=== PATIENT | male | born 1955 | race Caucasian/White ===

== ENCOUNTER → 2018-03-12 08:14 | Outpatient (POV) | payer OTHER, SELFPAY | PROVIDERS: Visit Provider Dentist | DX: Z00.00 Encounter for general adult medical examination without abnormal findings (principal) ==

== ENCOUNTER → 2018-05-14 09:18 | Outpatient (POV) | payer OTHER, SELFPAY | PROVIDERS: PCP Family Medicine; Visit Provider Dentist | DX: Z00.00 Encounter for general adult medical examination without abnormal findings (principal) ==

== ENCOUNTER → 2018-10-12 12:06 | Outpatient (POV) | payer OTHER, SELFPAY | PROVIDERS: Visit Provider Specialist | DX: R20.0 Anesthesia of skin (principal) | CPT/HCPCS: 95886; 95910 ==

== ENCOUNTER → 2018-11-12 08:08 | Outpatient (POV) | payer OTHER, SELFPAY | PROVIDERS: Visit Provider Dentist | DX: Z00.00 Encounter for general adult medical examination without abnormal findings (principal) ==

== ENCOUNTER → 2019-09-14 15:15 | Outpatient (CLI) | payer OTHER, SELFPAY | PROVIDERS: PCP Family Medicine; Visit Provider Nurse Practitioner | DX: R00.1 Bradycardia, unspecified (principal) | CPT/HCPCS: 93225; 93226 ==

== ENCOUNTER → 2019-10-11 07:43 | Outpatient (CLI) | payer OTHER, SELFPAY ==
--- NOTE | 2019-10-11 07:45 | CA_ITS ---
APPROVED REPORT EXAM: Comprehensive 2D, Doppler, and color-flow Echocardiogram [employer] Supervisor: Christina Briceno RVT Ht: 5 ft 8 in Wt: 187lbs BSA: 1.99 BP: 140/80 mmHg Indications: Bradycardia, abn EKG,Ex Smoker, GERD, HLD 2D Dimensions LVOT 2.29 cm (M/F) 1.5-2.5 M-Mode Dimensions RVDd 2.25 cm (0.9-2.6) LVDd 4.51 cm (3.5-5.7) LVDs 3.30 cm (3.5-5.7) IVSd 0.97 cm (0.6-1.1) PWd 0.93 cm (0.6-1.1) EF (Teich) 52.50% FS 26.80% EDV (Teich) 92.90 mL ESV (Teich) 44.10 mL LV Diastology E/A Ratio 1.44 Mitral Valve MV A Velocity 57.00 (40-130 cm/s) Left Ventricle Left atrium is normal size, left ventricle is normal size, there is no concentric left ventricular hypertrophy, visually estimated ejection fraction 55% with no regional wall motion abnormality, diastolic parameters are within normal range. Right Ventricle Right atrium and right ventricular mildly enlarged with normal contractility. Aortic Valve Aortic valve is minimally thickened and fibrosed, there is no aortic stenosis, there is trace aortic insufficiency. Mitral Valve Mitral valve is grossly normal, there is mild mitral regurgitation. Tricuspid Valve Tricuspid valve is grossly normal, there is mild tricuspid regurgitation. Tricuspid regurgitation jet velocity is inadequate for calculation of the right ventricular systolic pressure. Pulmonic Valve Pulmonic valve is poorly visualized. Great Vessels Aortic root is normal size. Pericardium No significant pericardial effusion noted. Conclusion 1. Normal left ventricular size, preserved left ventricular systolic function visually estimated ejection fraction 55% with no regional wall motion abnormality, diastolic parameters are within normal range. 2. Mildly enlarged right ventricle with normal contractility. 3. Mild mitral and tricuspid regurgitation. 4. Trace aortic insufficiency. 5. No significant pericardial effusion noted. Electronically signed by : Jewel King, 10/12/2019 05:47:53
== END ==
PROVIDERS: PCP Family Medicine; Visit Provider Urology
DX: R00.1 Bradycardia, unspecified (principal); E78.5 Hyperlipidemia, unspecified; Z85.850 Personal history of malignant neoplasm of thyroid; Z87.891 Personal history of nicotine dependence
CPT/HCPCS: 93306

== ENCOUNTER → 2019-10-18 13:53 | Outpatient (CLI) | payer OTHER, SELFPAY | PROVIDERS: PCP Family Medicine; Visit Provider Urology | DX: R00.1 Bradycardia, unspecified (principal); G47.33 Obstructive sleep apnea (adult) (pediatric) | CPT/HCPCS: 95806 ==

== ENCOUNTER → 2020-12-11 17:44 | Outpatient (CLI) | payer OTHER, SELFPAY ==
[2020-12-11 20:37] LABS: Coronavirus 19 IgG Antibody Positive (Negative); Coronavirus 19 IgM Antibody Negative (Negative)
== END ==
PROVIDERS: Visit Provider Surgery
DX: Z01.812 Encounter for preprocedural laboratory examination (principal); Z20.822 Contact with and (suspected) exposure to COVID-19; Z13.810 Encounter for screening for upper gastrointestinal disorder
CPT/HCPCS: 36415; 86328

== ENCOUNTER 2020-12-13 06:33 | Day surgery (SDC) | payer OTHER, SELFPAY ==
[2020-12-11 13:34] VITALS: BMI 29.2
[2020-12-13 06:54] VITALS: BP 155/87; PULSE 54; RESP 18; TEMP 36.5; O2SAT 98
[2020-12-13 07:24] VITALS: O2SAT 97
--- NOTE | 2020-12-13 07:33 | HMH.ANESCL ---
[facility] Anesthesia Checklist - Structural Data Admitted From: Home Planned Operative Procedure/s: egd Consent for Planned Operative Procedure(s) Verified: Yes - Additional verifications Anesthesia Reactions: Yes ( hard to wake ) - Airway Assessment C-Spine Mobility Assessed: Yes TMJ Mobility Assessed: Yes Dentition: Poor Dentition - Neurological Assessment Level of Consciousness: Awake, Alert, Appropriate - Anesthesia Plan Anesthesia Risk discussed: Yes Anesthesia Plan: Verified ASA Class: II Anesthesia Type: MAC [facility] History I have reviewed the patient's past medical history: Yes Medical History: Reports:: Cancer (TONSIL), Gastroesophageal Reflux Disease(GERD), Hyperlipidemia Denies:: Diabetes Mellitus Type 1, Diabetes Mellitus Type 2, Internal Pacemaker, Lung Disease, MRSA, Seizures *Have you ever received a pneumonia vaccine?: Yes *Have you received a flu vaccine this season?: Yes Other Medical History: Reports: Chemotherapy, Radiation Therapy, Thyroid Disease, Other Anesthesia experience/problems:: none Laterality Cases: Right: Myringotomy (Ear Tubes) Other Surgeries: Yes: Colonoscopy, Other (port a cath placement and removal ). No: Pacemaker Amputation: No Fractures: No - *Social History Last grade of school completed: High school graduate Smoking Status: Never smoker Alcohol Intake: never Substance Use Type: denies use *Occupational Status:: retired Housing: house Household Members: spouse *Travel in the last 8 weeks: None Family Hx:: No significant family history
--- NOTE | 2020-12-13 07:38 | P.PCN_ITS ---
- Procedure: Date: 12/13/20 Patient Date of :: 1955 Procedure Performed:: Esophagogastroduodenoscopy with biopsies Indications:: Patient is a 65-year-old male whom I had seen in the past. His primary care provider is Dr. Kevin Acuna. He has a history of radiation therapy for head neck cancer. I had performed colonoscopy on him on 01/13/2018 and he had a diminutive tubular adenoma at the hepatic flexure. I had recommended a follow- up colonoscopy 5 years. I performed upper endoscopy on 04/21/2018. 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 He was started on proton pump inhibitors. I had recommended a follow-up endoscopy in 1 year. Patient does have some dysphagia type symptoms which seems to be more of a cervical dysphagia. He states that his radiation physicians feel that this is not secondary to the radiation. He was wondering if he was due for both upper endoscopy and colonoscopy. Plan for upper endoscopy with biopsies. Dilatation if indicated. I did inform him that given the prior findings on colonoscopy he would not necessarily be due for colonoscopy at this time. If he continues with symptoms of cervical dysphagia he may need to see ENT again. Performing Provider:: Demetrius Crump MD Referring Provider:: Kevin Acuna MD Sedation:: MAC sedation Procedure:: Patient was taken to endoscopy procedure room and positioned in a lateral decubitus position. Adequate intravenous sedation was achieved with anesthesia titration of propofol. Olympus endoscope was inserted via the oropharynx and advanced into the gastric lumen. Gastroesophageal junction was encountered at approximately 40 cm from the incisors. There was no evidence of any Schatzki's ring. Stomach was cannulated and insufflated. There was some moderate nonerosive gastritis. Biopsies were obtained for CLOtest for H. pylori and gastric biopsy was obtained for histopathologic analysis. There is some very mild nonerosive duodenitis in the duodenal bulb. This was biopsied. Several biopsies were obtained at the gastroesophageal junction to assess for Marx's esophagus. Please note that retroflexion within the stomach revealed no evidence of any significant hiatal hernia. A couple of biopsies were obtained of the distal esophagus. In the proximal esophagus less than 15 cm from the incisors there is some minor inflammation and possibly some cricopharyngeal narrowing possibly secondary to previous radiation. Biopsies were obtained. This was not amenable to dilatation using the esophagogastroduodenoscopy scope. Endoscope was withdrawn. Findings:: Minor proximal esophageal inflammation Mild to moderate gastritis Mild nonerosive duodenitis Recommendations:: Continue proton pump inhibitors. Follow-up on biopsy results. If he continues with cervical dysphagia may require repeat ENT consultation. Complications:: None immediate Estimated blood obtained (mL): 2
[2020-12-13 07:40] VITALS: BP 102/59; PULSE 57; RESP 18; TEMP 36.3; O2SAT 93
[2020-12-13 07:50] VITALS: BP 149/85; PULSE 48; RESP 18; O2SAT 95
[2020-12-13 08:00] VITALS: BP 168/78; PULSE 41; RESP 18; O2SAT 98
[2020-12-13 08:10] VITALS: BP 151/88; PULSE 51; RESP 18; TEMP 36.2; O2SAT 97
== END 2020-12-13 08:10 | disposition home or self-care (01) ==
PROVIDERS: PCP Family Medicine; Visit Provider Surgery
PROC: 0DJ08ZZ Inspection of Upper Intestinal Tract, Via Natural or Artificial Opening Endoscopic (ICD-10-PCS; CPT 43235; principal; 2020-12-13 07:30)
DX: Z92.3 Personal history of irradiation (principal); K20.80 Other esophagitis without bleeding; K29.60 Other gastritis without bleeding; K29.80 Duodenitis without bleeding; Z87.19 Personal history of other diseases of the digestive system; Z85.818 Personal history of malignant neoplasm of other sites of lip, oral cavity, and pharynx; R13.19 Other dysphagia; K21.9 Gastro-esophageal reflux disease without esophagitis; E78.5 Hyperlipidemia, unspecified; Z96.22 Myringotomy tube(s) status; G47.33 Obstructive sleep apnea (adult) (pediatric); I35.1 Nonrheumatic aortic (valve) insufficiency
CPT/HCPCS: 43239; 87339

== ENCOUNTER → 2021-05-04 08:26 | Outpatient (CLI) | payer MEDICARE, OTHER, SELFPAY ==
--- NOTE | 2021-05-04 08:29 | CA_ITS ---
APPROVED REPORT EXAM: Comprehensive 2D, Doppler, and color-flow Echocardiogram [employer] Painter: Christina Briceno RVT Ht: 5 ft 9 in Wt: 195lbs BSA: 2.04 BP: 140/86 mmHg Indications: BRADYCARDIA,ABN EKG,EX SMOKER,HLD 2D Dimensions LVOT 2.27 cm (M/F) 1.5-2.5 LA Volume 42.00 mL LA Volume Index 20.58 mL/m2 (M/F) 16-34 M-Mode Dimensions RVDd 3.10 cm (0.9-2.6) LA Diam 4.78 cm (1.9-4.0) LVDd 5.11 cm (3.5-5.7) Ao Diam 2.95 cm (2.0-3.7) LVDs 2.66 cm (3.5-5.7) IVSd 0.76 cm (0.6-1.1) PWd 0.56 cm (0.6-1.1) EF (Teich) 79.10% FS 47.90% EDV (Teich) 124.40 mL TAPSE 2.52 (<1.7) ESV (Teich) 26.00 mL LV Diastology E Decel Time 150.00 (160-240 msec) E/A Ratio 0.6 MED E' 6.00 (< 7 cm/sec) E'/MED E' Ratio 11.58 (>14) LAT E' 11.40 (<10 cm/sec) E/LAT E' Ratio 6.10 (>14) Aortic Valve AI PHT 879.00 ms AO Peak GR. 7.30 mmHg Mitral Valve MV E Max Carlitos. 69.00 (40-130 cm/s) MV A Velocity 113.00 (40-130 cm/s) E/A Ratio 0.61 MV Decel. Time 150.00 (160-240 ms) MV PHT 44.00 ms Pulmonary Valve PV Peak Velocity 86.00 (50-150 cm/s) Tricuspid Valve TR P. Velocity 219.00 cm/s RAP Estimate 10.00 mmHg RVSP 29.10 mmHg Left Ventricle Left atrium is mildly enlarged, left ventricle is normal size, mild concentric left ventricular hypertrophy, visually estimated ejection fraction 55% with no regional wall motion abnormality, grade 1 diastolic dysfunction seen without tissue Doppler evidence of raise left atrial pressure. Right Ventricle Right atrium and right ventricle mildly enlarged with normal contractility. Aortic Valve Aortic valve is minimally thickened and fibrosed, there is no aortic stenosis, there is mild aortic insufficiency. Mitral Valve Mitral valve is grossly normal, there is trace mitral regurgitation. Tricuspid Valve Tricuspid valve grossly normal, there is trace tricuspid regurgitation, tricuspid regurgitation jet velocity is inadequate for calculation of the right ventricular systolic pressure. Pulmonic Valve Pulmonic valve is poorly visualized. Great Vessels Aortic root is normal size. Pericardium No significant pericardial effusion noted. Conclusion 1. Mild biatrial enlargement, normal left ventricular size, mild concentric left ventricular hypertrophy, visually estimated ejection fraction 55% with no regional wall motion abnormality, grade 1 diastolic dysfunction seen without tissue Doppler evidence of raise left atrial pressure. 2. Mildly enlarged right ventricle with normal contractility. 3. Trace mitral and tricuspid regurgitation. 4. Mild aortic insufficiency. 5. No significant pericardial effusion noted. Electronically signed by : Jewel King MD 05/04/2021 10:23:44
== END ==
LOC: RT 08:27
PROVIDERS: PCP Family Medicine; Visit Provider Nurse Practitioner
DX: R00.1 Bradycardia, unspecified (principal); R06.02 Shortness of breath
CPT/HCPCS: 93306

== ENCOUNTER → 2021-05-11 10:41 | Outpatient (CLI) | payer MEDICARE, OTHER, SELFPAY ==
[2021-05-11 13:19] LABS: NT Pro Brain Natriuretic Pep. 100 pg/mL (0-125)
== END ==
PROVIDERS: Visit Provider Internal Medicine Cardiovascular Disease
DX: G47.33 Obstructive sleep apnea (adult) (pediatric) (principal); I50.9 Heart failure, unspecified; R00.1 Bradycardia, unspecified; R06.00 Dyspnea, unspecified; R40.0 Somnolence; R94.31 Abnormal electrocardiogram [ECG] [EKG]
CPT/HCPCS: 36415; 83880

== ENCOUNTER → 2021-05-18 06:46 | Outpatient (CLI) | payer SELFPAY ==
--- NOTE | 2021-05-18 06:48 | CT_ITS ---
PROCEDURE: CT HEART W CALCIUM SCORE CLINICAL HISTORY: dyspnea COMPARISON: No exams were available for comparison TECHNIQUE: Axial images obtained with sagittal and coronal reformats. All CT scans at the facility use one or more dose reduction, viz: automated exposure control, ma/kV adjustment per patient size (including targeted exams where dose is matched to indication, i.e. head), or iterative reconstruction technique. FINDINGS: This report is delayed waiting on completion of the exam by the technologist only completed on 05/25/2021. Coronary artery calcium score is 19. Mild calcific plaque burden with moderate cardiovascular disease risk. Faint calcification is noted in the medial aspect of the left ventricle and may be related to chordae tendinae a calcification. Mild scarring is noted within the right upper lobe with some traction bronchiectasis.. Mild scarring also noted in the lingula. IMPRESSION: Mild calcific plaque burden with moderate cardiovascular disease risk Suspect faint chordae tendinae a calcification in the left ventricle. Scarring in the lingula and right middle lobe with some traction bronchiectasis in the right middle lobe Dictated by: Jose Pierre MD 05/25/2021 11:11 Jose Pierre MD in [facility] 05/25/2021 11:11
== END ==
PROVIDERS: PCP Family Medicine; Visit Provider Internal Medicine Cardiovascular Disease
DX: Z13.6 Encounter for screening for cardiovascular disorders (principal)
CPT/HCPCS: 75571

== ENCOUNTER → 2021-05-18 06:49 | Outpatient (CLI) | payer MEDICARE, OTHER, SELFPAY ==
--- NOTE | 2021-05-18 06:50 | NM_ITS ---
APPROVED REPORT Exam: Nuclear Stress Test Indication: FM HX, SOB, FATIGUE Patient Location: Outpatient Stress Tech: Christelle Santo MA Tech:Valeri Frances, ARRT, RT (R)(N) Ht: 5 ft 9 in Wt: 199 lbs HR: 40 bpm BP: 131/86 mmHg BSA: 2.06 m2 BMI: 29.3 History: FM HX, SOB, FATIGUE Procedure: Patient exercised on Tone protocol 9:00 minutes and sec, resting heart rate 40 bpm, resting blood pressure 131/86 mmHg, with exercise maximum heart rate achived was 139 bpm which is 90 % of the maximum predicted heart rate and blood pressure was 190/92 mmHg. Patient denied any complaint of chest pain. Patient has good exercise capacity, achieved 10.1 METs of workload on treadmill, the blood pressure response to exercise was Adequate. Electrocardiogram Resting electrocardiogram showed sinus rhythm, with exercise there is less than 1.[address] segment depression noted from the baseline EKG. The EKG portion of the exercise Myoview is negative for ischemia. Cardiac Stress and Resting SPECT Images: Cardiac Stress and Resting SPECT images were obtained using technetium 99m Myoview 32.0 mCi stress and 10.64 mCi at rest. Gated SPECT for analysis of segmental wall motion and calculation of the ejection fraction also done. Cardiac stress and resting SPECT images show uniform myocardial activity without segmental perfusion abnormality, computer derived ejection fraction is 58% with no regional wall motion abnormality, right ventricle is normal size and contractility. Conclusion: 1. The EKG portion of the exercise Myoview is negative for ischemia, patient has good exercise capacity achieved 10.1 METs of workload on treadmill, the blood pressure response to exercise was adequate, there was no exercise-induced chest discomfort. 2. No scintigraphic evidence of reversible ischemia seen, computer derived ejection fraction is 58% with no regional wall motion abnormality, right ventricle is normal size and contractility. 3. Normal exercise Myoview study. Electronically signed by : Jewel King MD 05/18/2021 13:06:54
--- NOTE | 2021-05-18 06:50 | CA_ITS ---
APPROVED REPORT Exam: Exercise Treadmill Technologist: Christelle Santo Ht: 5 ft 9 in Wt: 199 lbs BSA: 2.06 m2 HR: 40 bpm BP: 131/86 mmHg Indications: Shortness of Air Medical History Medications: Levothyroxine,,,,, Fish Oil,,,,, Atorvastatin,,,,, Magnesium,,,,, Esomeprazole,,,,, CetIRIZINE,,,,, Coenzyme Q10,,,,, Stress Test Details Test: Faiza HR Resting HR: 53 bpm Max Heart Rate (APMHR): 155.062138 bpm Max HR Achieved: 139 bpm Target HR (85% APMHR): 131.805375 bpm % of APMHR: 89.68 Recovery HR: 70 bpm BP Resting BP: 131.0/86.0 mmHg Max BP: 190.0/92.0 mmHg Recovery BP: 154.0/91.0 mmHg ECG Resting ECG: Sinus bradycardia with inferior non-specific ST T Changes. Clinical Reason for Termination: Dyspnea Exercise duration: 09:00 min Highest Stage Achieved: Exercise capacity: 10.1 METs Stress ECG Conclusion Negative stress test. Patient exercised on a faiza protocol for 9 minutes to peak heart rate of 139 bpm (target heart rate 132 bpm) without chest pain. Occasional PAC's/atrial couplets noted during stress. One PVC noted in recovery. Less than 1.[address] segment changes noted during stress. Total METS acheived was 10.1 with peak blood pressure 190/92 mmHg. See nuclear report for further information. Electronically signed by : Jewel King MD 05/18/2021 13:03:59
== END ==
PROVIDERS: PCP Family Medicine; Visit Provider Internal Medicine Cardiovascular Disease
DX: G47.33 Obstructive sleep apnea (adult) (pediatric) (principal); R00.1 Bradycardia, unspecified; R06.00 Dyspnea, unspecified; R40.0 Somnolence; R94.31 Abnormal electrocardiogram [ECG] [EKG]
CPT/HCPCS: 78452; 93017; A9502

== ENCOUNTER → 2021-06-22 09:24 | Outpatient (CLI) | payer MEDICARE, OTHER, SELFPAY ==
[2021-06-22 11:02] LABS: Alanine Aminotransferase 32 U/L (12-78); Albumin Level 4.4 g/dl (3.5-5.0); Alkaline Phosphatase 88 U/L (38-126); Aspartate Amino Transferase 44 U/L (17-59); Bilirubin,Direct 0.4 mg/dl (0.0-0.4); Bilirubin,Indirect 0.3 mg/dL (0.0-0.9); Bilirubin,Total 0.7 mg/dl (0.2-1.3); Bilirubin,Unconjugated 0.3 mg/dL (0.0-1.1); Chol/HDL Ratio 2.5 (1-3.5); Cholesterol 113 mg/dl (140-200); HDL Cholesterol 46 mg/dl (40-60); Total Protein,Serum 6.8 g/dl (6.3-8.2); Triglycerides 70 mg/dl (30-150); VLDL Cholesterol 14 mg/dL (0-40)
[2021-06-22 11:13] LABS: Direct LDL Cholesterol 46.66 mg/dL (100-129)
[2021-06-22 12:40] LABS: Chloride 101 mmol/L (98-107); Potassium 4.9 mmoL/L (3.5-5.1); Sodium 140 mmol/L (136-145)
[2021-06-22 12:43] LABS: Blood Urea Nitrogen 11 mg/dl (9-20); Estimated Glomerular Filt Rate 97 ml/min (>60); GFR (African American) 117 ML/MIN (>60)
[2021-06-22 12:44] LABS: Anion Gap 12.9 mEq/L (5-15); Calcium 9.6 mg/dl (8.4-10.2); Carbon Dioxide 31 mmol/L (22.0-30.0); Glucose 90 mg/dl (74-100)
== END ==
PROVIDERS: Visit Provider Internal Medicine Cardiovascular Disease
DX: E78.5 Hyperlipidemia, unspecified (principal); I10 Essential (primary) hypertension; R06.00 Dyspnea, unspecified; I35.1 Nonrheumatic aortic (valve) insufficiency; R94.31 Abnormal electrocardiogram [ECG] [EKG]
CPT/HCPCS: 36415; 80048; 80061; 80076

== ENCOUNTER 2022-03-16 16:16 | Emergency (ER) | payer OTHER, SELFPAY ==
[2022-03-16 16:17] VITALS: BP 138/62; PULSE 53; RESP 16; TEMP 37; O2SAT 98; BMI 26.6
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
[2022-03-16 17:00] VITALS: BP 116/72; PULSE 56; RESP 14; O2SAT 96
[2022-03-16 17:21] VITALS: BP 116/74; PULSE 78; RESP 16; TEMP 36.6; O2SAT 98
== END 2022-03-16 17:24 | disposition home or self-care (01) ==
PROVIDERS: Emergency Provider Emergency Medicine; PCP Family Medicine
DX: S01.01XA Laceration without foreign body of scalp, initial encounter (principal); S70.212A Abrasion, left hip, initial encounter; V84.5XXA Driver of special agricultural vehicle injured in nontraffic accident, initial encounter
CPT/HCPCS: 12001; 90471; 90715; 99283

== ENCOUNTER 2022-03-16 19:34 | Emergency (ER) | payer OTHER, SELFPAY ==
[2022-03-16 19:35] VITALS: BP 148/81; PULSE 58; RESP 16; TEMP 36.9; O2SAT 95; BMI 26.6
[2022-03-16 20:01] VITALS: BP 132/82; PULSE 61; O2SAT 96
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
--- NOTE | 2022-03-16 20:06 | ECG_ITS ---
APPROVED REPORT Exam: Resting ECG HR:57 bpm ECG Measurements Heart Rate 57 AXES TN 170 P 50 QRSd 92 QRS 5 QT 402 T 36 QTc 397 Conclusion SINUS BRADYCARDIA BORDERLINE ECG UNCONFIRMED REPORT Electronically signed by : Lucian Bell MD 03/17/2022 16:24:38
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
[2022-03-16 20:16] LABS: Microscopic, Urine URINE MICROSCOPIC (MICROSCOPIC)
[2022-03-16 20:18] LABS: Coronavirus 19, PCR Not Detected (NotDetected); Influenza A, PCR Not Detected (NotDetected); Influenza B, PCR Not Detected (NotDetected)
[2022-03-16 20:35] LABS: Appearance,Urine CLEAR (Clear); Bilirubin,Urine Negative (Negative); Blood, Urine Negative (Negative); Color,Urine YELLOW (Yellow); Glucose,Urine (UA) Negative (Negative); Ketones,Urine Negative (Negative); Leukocyte Esterase,Urine Negative (Negative); Nitrate,Urine Negative (Negative); Protein,Urine Negative (Negative); Specific Gravity, Urine 1.015 (1.005-1.030); Urobilinogen,Urine 0.2 EU/dl (0.2)
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
[2022-03-16 20:46] LABS: Amorphous Sediment,Urine Trace /lpf; WBC,Urine Occasional #/hpf (0-3)
[2022-03-16 20:52] LABS: Basophils # 0.1 K/mm3 (0-0.2); Basophils % 0.5 % (0.1-2.0); Eosinophils # 0.2 K/mm3 (0.0-0.4); Eosinophils % 1.2 % (0.1-12.0); Hematocrit 41.6 % (42.0-52.0); Hemoglobin 13.5 g/dL (14.1-18.0); Lymphocytes # 1.4 K/mm3 (0.7-4.5); Lymphocytes % 10.2 % (10-50); Mean Corpuscular HGB Conc 32.3 g/dL (31.8-35.4); Mean Corpuscular Hemoglobin 30.8 pg (27.0-31.2); Mean Corpuscular Volume 95.2 fl (80-94); Mean Platelet Volume 7.8 fl (7.4-10.4); Monocytes # 0.4 K/mm3 (0.1-1.0); Neutrophils # 11.9 K/mm3 (1.8-7.8); Neutrophils % 85.1 % (37.0-80.0); Platelet Count 246 K/mm3 (142-424); Red Blood Count 4.37 M/mm3 (4.60-6.20); White Blood Count 13.9 K/mm3 (4.8-10.8)
[2022-03-16 20:55] LABS: Alanine Aminotransferase 31 U/L (12-78); Albumin Level 4.3 g/dl (3.5-5.0); Albumin/Globulin Ratio 1.7 (1.1-1.8); Alkaline Phosphatase 82 U/L (38-126); Anion Gap 8.9 mEq/L (5-15); Aspartate Amino Transferase 42 U/L (17-59); Bilirubin,Total 0.3 mg/dl (0.2-1.3); Blood Urea Nitrogen 8 mg/dl (9-20); Calcium 9.1 mg/dl (8.4-10.2); Carbon Dioxide 32 mmol/L (22.0-30.0); Chloride 101 mmol/L (98-107); Creatine Kinase 95 U/L (55-170); Creatinine Clearance Estimated 84 mL/min (50-200); Estimated Glomerular Filt Rate 75 ml/min (>60); GFR (African American) 90 ML/MIN (>60); Globulin 2.5 g/dL (1.3-3.2); Glucose 143 mg/dl (74-100); MANUAL DIFFERENTIAL MANUAL DIFFERENTIAL (MANUAL DIFF); Potassium 3.9 mmoL/L (3.5-5.1); Sodium 138 mmol/L (136-145); Total Protein,Serum 6.8 g/dl (6.3-8.2)
[2022-03-16 21:19] LABS: Lymphocytes % 11 % (10-50); Monocytes % 6 % (2-9); Neutrophils % 83 % (42-76); Platelet Estimate Normal; Total Cells Counted 100
[2022-03-16 23:00] VITALS: BP 133/78; PULSE 58; O2SAT 97
--- NOTE | 2022-03-16 23:38 | HMH.EDTRAUMA ---
ED Disposition Clinical Impression: Flank pain, acute Sacral fracture, closed Qualifiers: Encounter type: initial encounter Zone of sacrum fracture: unspecified portion of sacrum Qualified Code(s): S32.10XA - Unspecified fracture of sacrum, initial encounter for closed fracture Disposition: Home, Self-Care Condition on Discharge: Good Instructions: DI for Low Back Pain Additional Instructions: use meds and see pcp for follow up Prescriptions: Tizanidine HCl [Zanaflex 4mg tab] 4 mg PO TID PRN #21 tab PRN Reason: Muscle Spasm Transmission Status: Pending to [facility]/pharmacy #[id number] Referrals: Provider,Referral, [Primary Care Provider] - - Critical Care Critical Care Time: No Attestation: On 03/16/22, the high probability of a clinically significant, sudden or life threatening deterioration of the following system(s) required my full and direct attention, intervention and personal management. The time I documented below is in addition to time spent performing reported procedures but includes the following listed in this critical care notation. Medical Decision Making - Medical Records Medical records reviewed: Yes: I reviewed the patient's medical records. - Papito Inquiry Pt receiving controlled substance: No Vital Signs: 03/16/22 19:35 03/16/22 20:01 03/16/22 23:00 Temperature 98.4 F Temperature Source Oral Pulse Rate 61 58 L Pulse Rate [Left Radial] 58 L Respiratory Rate 16 Blood Pressure 132/82 133/78 Blood Pressure [Right Arm] 148/81 H Blood Pressure Mean 108 Blood Pressure Mean [Right Arm] 103 Blood Pressure Source [Right Arm] Automatic Cuff Blood Pressure Position [Right Arm] Sitting 02 Sat by Pulse Oximetry 95 96 97 Oxygen Delivery Method Room Air Room Air Room Air - Lab Data Lab results reviewed: Yes: I reviewed the patient's lab results. Lab Results 03/16/22 20:10: Urine Color Yellow, Urine Appearance Clear, Urine pH 7.0, Ur Specific [place] 1.015, Urine Protein Negative, Urine Glucose (UA) Negative, Urine Ketones Negative, Urine Blood Negative, Urine Nitrate Negative, Urine Bilirubin Negative, Urine Urobilinogen 0.2, Ur Leukocyte Esterase Negative, Urine WBC Occasional, Amorphous Sediment Trace 03/16/22 20:10: SARS-CoV-2 (PCR) Not detected, Influenza A Untype (PCR) Not detected, Influenza Type B (PCR) Not detected 03/16/22 20:22: WBC 13.9 H, RBC 4.37 L, Hgb 13.5 L, Hct 41.6 L, MCV 95.2 H, MCH 30.8, MCHC 32.3, RDW 14.0, Plt Count 246, MPV 7.8, Neut % (Auto) 85.1 H, Lymph % (Auto) 10.2, Ripley % (Auto) 3.0, Eos % (Auto) 1.2, Baso % (Auto) 0.5, Neut # (Auto) 11.9 H, Lymph # (Auto) 1.4, [place] # (Auto) 0.4, Eos # (Auto) 0.2, Baso # (Auto) 0.1, Total Counted 100, Neutrophils % (Manual) 83 H, Lymphocytes % (Manual) 11, Monocytes % (Manual) 6, Platelet Estimate Normal 03/16/22 20:22: Sodium 138, Potassium 3.9, Chloride 101, Carbon Dioxide 32 H, Anion Gap 8.9, BUN 8 L, Creatinine 1.00, Estimated Creat Clear 84, Estimated GFR 75, Est GFR ( Amer) 90, Glucose 143 H, Calcium 9.1, Total Bilirubin 0.3, AST 42, ALT 31, Alkaline Phosphatase 82, Total Creatine Kinase 95, Total Protein 6.8, Albumin 4.3, Globulin 2.5, Albumin/Globulin Ratio 1.7 Result diagrams: 03/16/22 20:22 03/16/22 20:22 Orders (Tests/Meds): ED MEDICATIONS Discontinued Medications Generic Name Dose Route Start Last Admin Trade Name Edward PRN Reason Stop Dose Admin Iopamidol 75 ml 03/16/22 21:18 03/16/22 21:19 Iopamidol-370 (76%);100ml Bottle IV 03/16/22 21:19 75 ml ONCE ONE Administration Sodium Chloride 10 ml 03/16/22 21:18 03/16/22 21:19 Sodium Chloride 0.9% 10ml Syr (Rad Only) IV 03/16/22 21:19 10 ml ONCE ONE Administration ORDERS Category Date Time Status Lactic Acid Stat Lab 03/16/22 20:04 Ordered - Radiology Data #1 Image(s): Chest, Pelvis Image Reviewed: Yes I have reviewed radiologist's interpretation Preliminary Findings: No Fracture Seen - CT
[2022-03-16 23:51] VITALS: BP 135/78; PULSE 60; RESP 16; TEMP 36.9; O2SAT 97
== END 2022-03-17 00:01 | disposition home or self-care (01) ==
PROVIDERS: Emergency Provider Emergency Medicine
DX: R10.9 Unspecified abdominal pain (principal); S32.10XA Unspecified fracture of sacrum, initial encounter for closed fracture; V84.5XXD Driver of special agricultural vehicle injured in nontraffic accident, subsequent encounter
CPT/HCPCS: 71045; 71260; 72128; 72131; 72170; 74177; 80053; 81001; 82550; 85007; 85025; 93005; 96374; 99285; C9803; Q9967; U0003; U0005

== ENCOUNTER → 2022-06-08 08:15 | Outpatient (CLI) | payer MEDICARE, OTHER, SELFPAY ==
[2022-06-07 19:46] LABS: Alanine Aminotransferase 28 U/L (12-78); Albumin Level 4.2 g/dl (3.5-5.0); Albumin/Globulin Ratio 1.6 (1.1-1.8); Alkaline Phosphatase 111 U/L (38-126); Anion Gap 16.2 mEq/L (5-15); Aspartate Amino Transferase 39 U/L (17-59); Bilirubin,Total 0.4 mg/dl (0.2-1.3); Blood Urea Nitrogen 12 mg/dl (9-20); Calcium 9.1 mg/dl (8.4-10.2); Carbon Dioxide 30 mmol/L (22.0-30.0); Chloride 101 mmol/L (98-107); Estimated Glomerular Filt Rate 84 ml/min (>60); GFR (African American) 102 ML/MIN (>60); Globulin 2.6 g/dL (1.3-3.2); Glucose 99 mg/dl (74-100); Potassium 4.2 mmoL/L (3.5-5.1); Sodium 143 mmol/L (136-145); Total Protein,Serum 6.8 g/dl (6.3-8.2)
[2022-06-07 20:16] LABS: Thyroid Stimulating Hormone 2.94 uIU/mL (0.465-4.68)
== END ==
PROVIDERS: PCP Family Medicine; Visit Provider Family Medicine
DX: I10 Essential (primary) hypertension (principal); Z79.899 Other long term (current) drug therapy
CPT/HCPCS: 80053; 84443

== ENCOUNTER → 2022-09-09 08:55 | Outpatient (CLI) | payer OTHER, SELFPAY ==
[2022-09-09 18:33] LABS: Alanine Aminotransferase 33 U/L (12-78); Albumin Level 4.2 g/dl (3.5-5.0); Albumin/Globulin Ratio 1.6 (1.1-1.8); Alkaline Phosphatase 90 U/L (38-126); Anion Gap 11.5 mEq/L (5-15); Aspartate Amino Transferase 40 U/L (17-59); Bilirubin,Total 0.5 mg/dl (0.2-1.3); Blood Urea Nitrogen 16 mg/dl (9-20); Carbon Dioxide 31 mmol/L (22.0-30.0); Chloride 102 mmol/L (98-107); Chol/HDL Ratio 2.8 (1-3.5); Cholesterol 132 mg/dl (140-200); Estimated Glomerular Filt Rate 75 ml/min (>60); GFR (African American) 90 ML/MIN (>60); Globulin 2.6 g/dL (1.3-3.2); Glucose 93 mg/dl (74-100); HDL Cholesterol 47 mg/dl (40-60); Potassium 4.5 mmoL/L (3.5-5.1); Sodium 140 mmol/L (136-145); Total Protein,Serum 6.8 g/dl (6.3-8.2); Triglycerides 58 mg/dl (30-150); VLDL Cholesterol 12 mg/dL (0-40)
[2022-09-09 18:43] LABS: Basophils # 0.1 K/mm3 (0-0.2); Basophils % 0.8 % (0.1-2.0); Eosinophils # 0.3 K/mm3 (0.0-0.4); Eosinophils % 5.3 % (0.1-12.0); Hematocrit 44.3 % (42.0-52.0); Hemoglobin 14.2 g/dL (14.1-18.0); Lymphocytes # 1.6 K/mm3 (0.7-4.5); Lymphocytes % 25.8 % (10-50); Mean Corpuscular Volume 93.5 fl (80-94); Mean Platelet Volume 9.1 fl (7.4-10.4); Monocytes # 0.2 K/mm3 (0.1-1.0); Monocytes % 3.6 % (1.7-9.3); Neutrophils # 4.1 K/mm3 (1.8-7.8); Neutrophils % 64.5 % (37.0-80.0); Platelet Count 292 K/mm3 (142-424); Red Blood Count 4.73 M/mm3 (4.60-6.20); Red Cell Distribution Width 13.5 % (11.5-17.5); White Blood Count 6.3 K/mm3 (4.8-10.8)
[2022-09-09 18:44] LABS: Creatinine,Urine Random 75 mg/dL (Not Estab.); Direct LDL Cholesterol 64.82 mg/dL (100-129)
[2022-09-09 18:50] LABS: Free T4 (Free Thyroxine) 0.86 ng/dl (0.78-2.19); Microalbumin < 6.000 mg/L (0-16.7)
[2022-09-09 19:05] LABS: Prostate Specific Ag Screen 0.4 ng/ml (0.0-4.0); Thyroid Stimulating Hormone 2.38 uIU/mL (0.465-4.68)
[2022-09-09 19:22] LABS: Vitamin B12 654 pg/mL (239-931)
== END ==
PROVIDERS: PCP Nurse Practitioner; Visit Provider Nurse Practitioner
DX: E03.9 Hypothyroidism, unspecified (principal); E78.5 Hyperlipidemia, unspecified; I10 Essential (primary) hypertension; Z12.5 Encounter for screening for malignant neoplasm of prostate
CPT/HCPCS: 80053; 80061; 82043; 82570; 82607; 84439; 84443; 85025; G0103

== ENCOUNTER → 2023-03-10 23:06 | Outpatient (CLI) | payer OTHER, SELFPAY ==
[2023-03-10 19:38] LABS: Alanine Aminotransferase 32 U/L (12-78); Albumin Level 4.5 g/dl (3.5-5.0); Albumin/Globulin Ratio 1.8 (1.1-1.8); Alkaline Phosphatase 89 U/L (38-126); Anion Gap 13.2 mEq/L (5-15); Aspartate Amino Transferase 42 U/L (17-59); Bilirubin,Total 0.5 mg/dl (0.2-1.3); Blood Urea Nitrogen 15 mg/dl (9-20); Calcium 9.3 mg/dl (8.4-10.2); Carbon Dioxide 32 mmol/L (22.0-30.0); Chloride 100 mmol/L (98-107); Chol/HDL Ratio 2.7 (1-3.5); Cholesterol 134 mg/dl (140-200); Estimated Glomerular Filt Rate 84 ml/min (>60); GFR (African American) 102 ML/MIN (>60); Globulin 2.5 g/dL (1.3-3.2); Glucose 90 mg/dl (74-100); HDL Cholesterol 50 mg/dl (40-60); Potassium 4.2 mmoL/L (3.5-5.1); Sodium 141 mmol/L (136-145); Triglycerides 93 mg/dl (30-150); VLDL Cholesterol 19 mg/dL (0-40)
[2023-03-10 19:49] LABS: Direct LDL Cholesterol 63.16 mg/dL (100-129); Free T4 (Free Thyroxine) 0.97 ng/dl (0.78-2.19)
[2023-03-10 20:03] LABS: Thyroid Stimulating Hormone 1.25 uIU/mL (0.465-4.68)
== END ==
LOC: LAB.DROPOF 23:07
PROVIDERS: PCP Nurse Practitioner; Visit Provider Nurse Practitioner
DX: E03.9 Hypothyroidism, unspecified (principal); E78.5 Hyperlipidemia, unspecified; I10 Essential (primary) hypertension
CPT/HCPCS: 80053; 80061; 84439; 84443

== ENCOUNTER 2023-06-10 06:28 | Day surgery (SDC) | payer OTHER, SELFPAY ==
[2023-06-06 12:40] VITALS: BMI 25.8
[2023-06-10 07:12] VITALS: BP 134/84; PULSE 52; RESP 18; TEMP 36.7; O2SAT 98
[2023-06-10 07:42] VITALS: BP 147/70; PULSE 40; RESP 17; O2SAT 96
[2023-06-10 07:47] VITALS: BP 162/77; PULSE 45; RESP 16; O2SAT 100
[2023-06-10 07:52] VITALS: BP 153/73; PULSE 46; RESP 17; O2SAT 100
[2023-06-10 07:56] VITALS: BP 140/66; PULSE 39; RESP 17; O2SAT 100
[2023-06-10 08:00] VITALS: BP 147/80; PULSE 43; RESP 18; TEMP 36.1; O2SAT 98
== END 2023-06-10 08:14 | disposition home or self-care (01) ==
PROVIDERS: PCP Nurse Practitioner; Visit Provider Ophthalmology
PROC: (CPT 66984; principal; 2023-06-10 07:30)
DX: H25.811 Combined forms of age-related cataract, right eye (principal)
CPT/HCPCS: 66984; V2632

== ENCOUNTER 2023-06-24 06:24 | Day surgery (SDC) | payer OTHER, SELFPAY ==
[2023-06-23 07:15] VITALS: BMI 27.6
[2023-06-24] VITALS (7 sets, daily range): BP systolic 136–178; BP diastolic 72–99; PULSE 43–53; RESP 16–18; TEMP 36.3; O2SAT 95–99
== END 2023-06-24 08:16 | disposition home or self-care (01) ==
PROVIDERS: PCP Nurse Practitioner; Visit Provider Ophthalmology
PROC: (CPT 66984; principal; 2023-06-24 07:30)
DX: H25.812 Combined forms of age-related cataract, left eye (principal)
CPT/HCPCS: 66984; V2632

== ENCOUNTER → 2023-08-22 07:26 | Outpatient (CLI) | payer OTHER, SELFPAY ==
--- NOTE | 2023-08-22 | CA_ITS ---
APPROVED REPORT Exam: Exercise Treadmill Technologist: Johanna Brown, Ht: 5 ft 9 in Wt: 193 lbs BSA: 2.03 m2 HR: 55 bpm BP: 151/97 mmHg Rhythm: SINUS EV, T WAVE ABNS IN LEADS III, aVF Medical History Medical History: HTN, Hyperlipidemia, Smoking Medications: Levothyroxine,,,,, Aspirin,,,,, Atorvastatin,,,,, Flonase,,,,, Montelukast,,,,, Vit B,,,,, Sertraline,,,,, CetIRIZINE,,,,, Garlic,,,,, Coenzyme Q10,,,,, Losartan-Hydrochlorothiazide,,,,, Esomeprazle MAGNESIUM,,,,, Allergies: No known drug allergies Cardiac Risk Factors: HTN, Hyperlipidemia, FHX of CAD, Smoking Stress Test Details Test: Tone HR Resting HR: 50 bpm Max Heart Rate (APMHR): 153 bpm Max HR Achieved: 141 bpm Target HR (85% APMHR): 130 bpm % of APMHR: 92 Recovery HR: 85 bpm HR response to stress: Normal HR response to stress BP Resting BP: 151.0/97 mmHg Max BP: 192/90 mmHg Recovery BP: 155.0/89.0 mmHg BP response to stress: Normal blood pressure response to stress. ECG Resting ECG: Sinus bradycardia, T wave changes in inferior leads Stress EC.[address] depression Arrhythmia: PVCs Recovery ECG: Return to baseline within 3 minutes of recovery Recovery Arrhythmia: PACs Clinical Exercise duration: 07:31 min Highest Stage Achieved: Exercise capacity: 10.1 METs Overall Exercise Capacity for Age: Average Stress ECG Conclusion The patient was able to exercise for a total of 7 minutes, 41 seconds. He achieved a total of 10.1 METS. He has average exercise capacity compared to age and sex matched peers. He has normal HR and BP response to exercise. MAX HR: 141 % OF PM: 92% MAX BP: 192/90 METS: 10.1 TEST STOPPED DUE TO: SOA NO CP Ectopy: PACs Conclusion: Average exercise capacity Normal ST response to exercise. No evidence of ischemia at peak stress. Myoview images are reported separately. Test Summary REST . . . . . . . Standing REST . . . . . . . Sitting REST 06:33 0.0 0.0 50 . 151/ 97 . . Stage 1 01:00 10.0 1.7 91 . . . . Stage 1 02:00 10.0 1.7 104 . . . . Stage 1 03:00 10.0 1.7 115 . 190/ 96 . . Stage 2 01:00 12.0 2.5 123 . . . . Stage 2 02:00 12.0 2.5 126 . . . . Stage 2 03:00 12.0 2.5 128 . 192/ 90 . . Stage 3 01:00 14.0 3.4 136 . . . . Stage 3 01:31 14.0 3.4 140 . . . Stop exercise at 07:31 RECOVERY 01:00 0.0 0.0 123 . . . . RECOVERY 02:00 0.0 0.0 102 . . . . RECOVERY 03:00 0.0 0.0 88 . 133/ 97 . . RECOVERY 04:00 0.0 0.0 80 . 133/ 97 . . RECOVERY 05:00 0.0 0.0 79 . 175/ 98 . . RECOVERY 05:44 0.0 0.0 77 . 155/ 89 . . Electronically signed by : Carmita Kulkarni MD 08/26/2023 23:46:41
--- NOTE | 2023-08-22 07:36 | NM_ITS ---
APPROVED REPORT Exam: Nuclear Stress Test Indication: HTN, HYPERLIPIDEMIA, FM HX, SOB, SYNCOPE, ABN EKG Patient Location: Outpatient Stress Tech: Johanna Brown [place] Tech:Rochelle AcharyaEVELYNE RT (R)(N)(M) Ht: 5 ft 9 in Wt: 184 lbs HR: 55 bpm BP: 151/97 mmHg BSA: 1.99 m2 Rhythm: NSR TID: 1.09 BMI: 27.1 History: HTN, HYPERLIPIDEMIA, FM HX, SOB, SYNCOPE, ABN EKG Procedure: Patient exercised on Tone protocol 7:30 minutes and sec, resting heart rate 55 bpm, resting blood pressure 151/97 mmHg, with exercise maximum heart rate achived was 141 bpm which is 92 % of the maximum predicted heart rate and blood pressure was 192/90 mmHg. Test was stopped due to FATIGUE. Patient denied any complaint of chest pain. Patient has Average exercise capacity, achieved 10.1 METs of workload on treadmill, the blood pressure response to exercise was Normal. Cardiac Stress and Resting SPECT Images: Cardiac Stress and Resting SPECT images were obtained using technetium 99m Myoview 31.9 mCi stress and 10.22 mCi at rest. Resting and stress imaging in supine and prone positions demonstrate no definite evidence of fixed or reversible perfusion defects. Gated imaging demonstrates normal global and regional LV systolic function. LVEF is calculated at 59%. Conclusion: No definite evidence of fixed or reversible perfusion defects. Gated imaging demonstrates normal global and regional LV systolic function. LVEF is calculated at 59%. Electronically signed by : Carmita Kulkarni MD 08/26/2023 23:48:31
--- NOTE | 2023-08-22 09:27 | CA_ITS ---
APPROVED REPORT EXAM: Comprehensive 2D, Doppler, and color-flow Echocardiogram Holder Pile Driving: Christina Briceno RVT Ht: 5 ft 9 in Wt: 193lbs BSA: 2.03 BP: 131/77 mmHg Indications: ABN EKG,HTN,HLD,EX SMOKER 2D Dimensions LA Volume 51.00 mL LA Volume Index 25.00 mL/m2 (M/F) 16-34 M-Mode Dimensions RVDd 2.69 cm (0.9-2.6) LA Diam 4.31 cm (1.9-4.0) LVDd 4.42 cm (3.5-5.7) LVDs 2.95 cm (3.5-5.7) IVSd 0.83 cm (0.6-1.1) PWd 0.61 cm (0.6-1.1) EF (Teich) 62.10% FS 33.30% EDV (Teich) 88.60 mL TAPSE 1.98 (<1.7) ESV (Teich) 33.60 mL LV Diastology E Decel Time 307 (160-240 msec) E/A Ratio 1.0 MED A' 9.10 cm/s LAT A' 8.50 cm/s Aortic Valve BENJIE Index 1.31 cm2/m2 AoV Peak Carlitos. 157.0 (50-130 cm/s) AI PHT 323.00 ms AO Peak GR. 9.90 mmHg AO Mean GR. 5.00 (<5 mmHg) AO VTI 37.7 (18-25 cm) BENJIE (VTI) 2.73 (2.5-4.5 cm2) Mitral Valve MV E Max Carlitos. 67.0 (40-130 cm/s) MV A Velocity 70.0 (40-130 cm/s) E/A Ratio 0.96 MV PHT 90.0 ms Pulmonary Valve PV Peak Velocity 78.0 (50-150 cm/s) Tricuspid Valve TR P. Velocity 238.00 cm/s RAP Estimate 10.00 mmHg RVSP 32.60 mmHg Left Ventricle The left ventricle is normal size. The left ventricular systolic function is normal. The left ventricular ejection fraction is within the normal range. Proximal septal thickening is noted. There is normal LV segmental wall motion. The left ventricular diastolic function is normal. LVEF is 60%. Right Ventricle The right ventricle is normal size. The right ventricular systolic function is normal. Atria The left atrium size is normal. The right atrium size is normal. There is no Doppler evidence of interatrial shunt. Aortic Valve The aortic valve is mildly thickened. There is no aortic valvular stenosis. Mild aortic regurgitation. Mitral Valve The mitral valve is normal in structure. No evidence of mitral valve stenosis. Mild mitral regurgitation. Tricuspid Valve The tricuspid valve leaflets are thin and pliable. Trace tricuspid regurgitation. RVSP is 20-25 mmHg. Pulmonic Valve The pulmonary valve is normal in structure. Trace pulmonic regurgitation. Great Vessels The aortic root is normal in size. The ascending aorta is normal in size. IVC is normal in size and collapses >50% with inspiration. Pericardium There is no pericardial effusion. Other Information Study Quality: Adequate Conclusion Normal biventricular systolic function. Mild AI. Mild MR. Electronically signed by : Carmita Kulkarni MD 08/26/2023 19:12:51
== END ==
PROVIDERS: PCP Family Medicine; Visit Provider Nurse Practitioner
DX: I51.89 Other ill-defined heart diseases (principal); R94.31 Abnormal electrocardiogram [ECG] [EKG]
CPT/HCPCS: 78452; 93017; 93018; 93306; A9502

== ENCOUNTER 2023-09-08 23:13 | Outpatient (CLI) | payer OTHER, SELFPAY ==
[2023-09-08 18:37] LABS: Basophils % 0.5 % (0.1-2.0); Eosinophils # 0.3 K/mm3 (0.0-0.4); Eosinophils % 4.6 % (0.1-12.0); Hematocrit 41.6 % (42.0-52.0); Hemoglobin 13.8 g/dL (14.1-18.0); Lymphocytes # 1.6 K/mm3 (0.7-4.5); Lymphocytes % 25.2 % (10-50); Mean Corpuscular HGB Conc 33.2 g/dL (31.8-35.4); Mean Corpuscular Hemoglobin 30.7 pg (27.0-31.2); Mean Corpuscular Volume 92.7 fl (80-94); Mean Platelet Volume 8.5 fl (7.4-10.4); Monocytes # 0.3 K/mm3 (0.1-1.0); Neutrophils % 64.6 % (37.0-80.0); Platelet Count 234 K/mm3 (142-424); Red Blood Count 4.49 M/mm3 (4.60-6.20); White Blood Count 6.3 K/mm3 (4.8-10.8)
[2023-09-08 18:46] LABS: Creatinine,Urine Random 64 mg/dL (Not Estab.)
[2023-09-08 18:53] LABS: Microalbumin < 6.000 mg/L (0-16.7)
[2023-09-08 19:04] LABS: Alanine Aminotransferase 34 U/L (12-78); Albumin Level 4.2 g/dl (3.5-5.0); Albumin/Globulin Ratio 1.8 (1.1-1.8); Alkaline Phosphatase 82 U/L (38-126); Anion Gap 5.8 mEq/L (5-15); Aspartate Amino Transferase 44 U/L (17-59); Bilirubin,Total 0.6 mg/dl (0.2-1.3); Blood Urea Nitrogen 11 mg/dl (9-20); Calcium 8.9 mg/dl (8.4-10.2); Carbon Dioxide 32 mmol/L (22.0-30.0); Chloride 102 mmol/L (98-107); Chol/HDL Ratio 3.3 (1-3.5); Cholesterol 147 mg/dl (140-200); Estimated Glomerular Filt Rate 84 ml/min (>60); GFR (African American) 102 ML/MIN (>60); Globulin 2.4 g/dL (1.3-3.2); Glucose 93 mg/dl (74-100); HDL Cholesterol 45 mg/dl (40-60); Potassium 3.8 mmoL/L (3.5-5.1); Sodium 136 mmol/L (136-145); Total Protein,Serum 6.6 g/dl (6.3-8.2); Triglycerides 68 mg/dl (30-150); VLDL Cholesterol 14 mg/dL (0-40)
[2023-09-08 19:17] LABS: Direct LDL Cholesterol 81.38 mg/dL (100-129)
[2023-09-08 19:22] LABS: Free T4 (Free Thyroxine) 0.93 ng/dl (0.78-2.19)
[2023-09-08 19:35] LABS: Thyroid Stimulating Hormone 3.22 uIU/mL (0.465-4.68)
[2023-09-08 19:36] LABS: Hemoglobin A1C 5.4 % (4.0-6.0)
[2023-09-08 19:54] LABS: Vitamin B12 772 pg/mL (239-931)
== END 2023-09-08 23:59 ==
LOC: LAB.DROPOF 23:14
PROVIDERS: PCP Nurse Practitioner; Visit Provider Nurse Practitioner
DX: E03.9 Hypothyroidism, unspecified (principal); F43.23 Adjustment disorder with mixed anxiety and depressed mood; E78.5 Hyperlipidemia, unspecified; I10 Essential (primary) hypertension; J30.9 Allergic rhinitis, unspecified; K21.9 Gastro-esophageal reflux disease without esophagitis
CPT/HCPCS: 80053; 80061; 82043; 82570; 82607; 83036; 84439; 84443; 85025

== ENCOUNTER 2023-11-07 07:22 | Day surgery (SDC) | payer OTHER, SELFPAY ==
[2023-11-07] MEDS: LACTATED RINGERS 1000ML 1,000 ML 25 ML IV (07:35)
[2023-11-07 07:38] VITALS: BP 150/93; PULSE 67; RESP 16; TEMP 36.2; O2SAT 95; BMI 28.0
--- NOTE | 2023-11-07 07:58 | EXP.ANES.CKL ---
[facility] Disclaimer: The information contained in this section may have been updated after the patient was seen, as this information can be updated by other users. Medical History Asthma History of cataract Tonsil cancer Peyronie's disease Situational mixed anxiety and depressive disorder Allergic rhinitis GERD (gastroesophageal reflux disease) Actinic keratosis Acquired hypothyroidism HTN (hypertension) HLD (hyperlipidemia) Dyspnea Surgical History Hx of colonoscopy History of cataract surgery Family History Other No significant family history Social History Smoking Status: Former smoker second hand exposure: No alcohol intake: never counseling provided: none substance use type: denies use current occupational status: retired Travel in the last 8 weeks: None household members: spouse housing: house current occupational exposures/hazards: No caffeine: No [facility] Anesthesia Checklist Patient Identification Patient Identification: Arm Band and Verbal (Name & ) Structural Data Admitted From: Home Planned Operative Procedure/s: Colonoscopy Consent for Planned Operative Procedure(s) Verified: Yes NPO Status Verified Time NPO: 00:00 Additional verifications Anesthesia Reactions: Yes ( hard to wake ) Airway Assessment Mallampati Score:: Class I C-Spine Mobility Assessed: Yes TMJ Mobility Assessed: Yes Dentition: Good Dentition Neurological Assessment Level of Consciousness: Awake Hx Seizures: No Numbness or tingling in extremities: No Anesthesia Plan Anesthesia Risk discussed: Yes Anesthesia Plan: Verified ASA Class: II Anesthesia Type: MAC
--- NOTE | 2023-11-07 08:21 | P.PCN_ITS ---
Procedure: Date: 11/07/23 Patient Date of :: 1955 Procedure Performed:: Esophagogastroduodenoscopy with biopsies Colonoscopy with polypectomy using biopsy forceps Indications:: Patient is a 68-year-old male. 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 He had a repeat endoscopy for dysphagia in November 2020 and there was no evidence of any Marx's at that time. He did have a colonoscopy December 2017 and had a tubular adenoma at the hepatic flexure and 5-year colonoscopy was recommended. Consideration was being given for possible colonoscopy and upper endoscopy given his history of adenomatous polyps and prior history of Marx's esophagus.. Performing Provider:: Demetrius Crump MD Referring Provider:: Serena Weathers Sedation:: MAC sedation Procedure:: Patient history was obtained and appropriate physical examination was performed. Patient's medications and allergies were reviewed. Informed consent was obtained after explaining the benefits, alternatives, and risks of the procedure including, but not limited to, bleeding, perforation, missed lesions, and adverse reaction to anesthesia medications. Patient was transported to endoscopy procedure room. Patient was connected to monitoring devices. Throughout the procedure the patient's blood pressure, pulse, and oxygen saturations were monitored continuously. Patient identification and planned procedure were verified by the staff. Attention was first turned to upper endoscopy. Olympus endoscope was inserted via the oropharynx. There was some tortuosity to the esophagus. Gastroesophageal junction was encountered at approximately 38 cm. There were findings potentially consistent with focal Amrx's esophagus. Stomach was cannulated and insufflated. Retroflexion revealed no evidence of any sliding hiatal hernia. There was some diffuse minor nonerosive gastropathy. Gastric antral biopsy was obtained. Pylorus was traversed. Duodenum appeared unremar kable. Endoscope was withdrawn into the distal esophagus. Several biopsies were obtained at the gastroesophageal junction to evaluate for Marx's esophagus. Endoscope was withdrawn. Patient was positioned in lateral decubitus position. Digital anorectal exam was performed. Variable stiffness Olympus colonoscope was inserted and advanced under direct visualization to the cecum. Adequacy of the colonic preparation was noted. The colonoscope was then slowly withdrawn while carefully examining the color, texture, anatomy, and integrity of the mucosoa circumferentially. Within the rectum retroflexion was performed. Colonoscope was then withdrawn. . There was noted to be fair preparation with particulate liquid stool throughout the colon. High-volume irrigation and suctioning was performed which allowed for decent visualization. In the cecum there was a possible tiny diminutive 1 or 2 mm polyp removed with biopsy forceps. The descending colon there was potential polyp with a focal area of irregular tissue. This was removed with biopsy forceps. It was unclear if this was truly polypoid tissue or not and sent as descending polyp. At the rectosigmoid colon there was a hyperplastic appearing polyp removed with cold biopsy forceps. . Findings:: Gastroesophageal junction at 38 cm Possible Marx's esophagus Antral gastropathy Potential diminutive tiny polyps as noted above Recommendations:: Likely repeat colonoscopy 3 to 5 years pending pathology. Complications:: None immediately apparent Estimated blood obtained (mL): 2 Colonoscopy Component Colonoscopy Component Was a colonoscopy performed during today's procedure?: Yes Recommended follow up colonoscopy of at least 10 years?: No If no, follow up colonoscopy recommended in ___ years?: 3-5 Reason for not recommending >/= 10 yr follow-up interval?: Pathology pending
[2023-11-07 08:34] VITALS: O2SAT 98
[2023-11-07 09:16] VITALS: BP 88/53; PULSE 59; RESP 14; TEMP 36.2; O2SAT 94
[2023-11-07 09:26] VITALS: BP 120/67; PULSE 53; RESP 16; O2SAT 98
[2023-11-07 09:36] VITALS: BP 120/73; PULSE 52; RESP 18; O2SAT 98
[2023-11-07 09:46] VITALS: BP 114/67; PULSE 54; RESP 16; O2SAT 98
== END 2023-11-07 09:50 | disposition home or self-care (01) ==
PROVIDERS: PCP Family Medicine; Visit Provider Surgery
PROC: 0DJD8ZZ Inspection of Lower Intestinal Tract, Via Natural or Artificial Opening Endoscopic (ICD-10-PCS; CPT 43239; principal; 2023-11-07 08:30)
DX: Z12.11 Encounter for screening for malignant neoplasm of colon (principal); K22.70 Barrett's esophagus without dysplasia; K25.9 Gastric ulcer, unspecified as acute or chronic, without hemorrhage or perforation; Z86.010 Personal history of colon polyps; K63.5 Polyp of colon
CPT/HCPCS: 43239; 45380; J2704

== ENCOUNTER 2024-03-09 08:50 | Outpatient (CLI) | payer OTHER, SELFPAY ==
[2024-03-09 18:50] LABS: Erythrocyte Sedimentation Rate 18 mm/hr (0-20)
[2024-03-09 19:02] LABS: Alanine Aminotransferase 31 U/L (12-78); Albumin/Globulin Ratio 1.5 (1.1-1.8); Alkaline Phosphatase 81 U/L (38-126); Anion Gap 8.9 mEq/L (5-15); Aspartate Amino Transferase 44 U/L (17-59); Bilirubin,Total 0.4 mg/dl (0.2-1.3); Blood Urea Nitrogen 11 mg/dl (9-20); Calcium 9.5 mg/dl (8.4-10.2); Carbon Dioxide 32 mmol/L (22.0-30.0); Chloride 103 mmol/L (98-107); Chol/HDL Ratio 3.3 (1-3.5); Cholesterol 131 mg/dl (140-200); Estimated Glomerular Filt Rate 84 ml/min (>60); GFR (African American) 102 ML/MIN (>60); Globulin 2.6 g/dL (1.3-3.2); Glucose 91 mg/dl (74-100); HDL Cholesterol 40 mg/dl (40-60); Potassium 3.9 mmoL/L (3.5-5.1); Sodium 140 mmol/L (136-145); Total Protein,Serum 6.6 g/dl (6.3-8.2); Triglycerides 82 mg/dl (30-150); Uric Acid 5.2 mg/dl (3.5-8.5); VLDL Cholesterol 16 mg/dL (0-40)
[2024-03-09 19:14] LABS: Direct LDL Cholesterol 65.72 mg/dL (100-129)
[2024-03-09 19:18] LABS: Free T4 (Free Thyroxine) 0.81 ng/dl (0.78-2.19)
[2024-03-09 19:21] LABS: 25-OH Vitamin D, Total 50.9 ng/mL (30-100)
[2024-03-09 19:34] LABS: Prostate Specific Ag Screen 0.4 ng/ml (0.0-4.0); Thyroid Stimulating Hormone 4.03 uIU/mL (0.465-4.68)
[2024-03-11 13:12] LABS: Anti-Centromere B Antibodies <0.2 AI (0.0-0.9); Anti-DNA (DS) Ab Qn <1 IU/mL (0-9); Anti-Jo-1 <0.2 AI (0.0-0.9); Anti-Smith Antibody <0.2 AI (0.0-0.9); Antichromatin Antibodies <0.2 AI (0.0-0.9); Antiscleroderma-70 Antibodies <0.2 AI (0.0-0.9); RA Latex Turbid. <10.0 IU/mL (<14.0); RNP Antibodies <0.2 AI (0.0-0.9); Sjogren's Anti-SS-A <0.2 AI (0.0-0.9); Sjogren's Anti-SS-B <0.2 AI (0.0-0.9)
[2024-04-19 11:59] LABS: Antinuclear Antibodies, IFA Positive
== END 2024-03-09 23:59 | disposition home or self-care (01) ==
LOC: LAB.DROPOF 03-10 10:52
PROVIDERS: PCP Nurse Practitioner; Visit Provider Nurse Practitioner
DX: I10 Essential (primary) hypertension (principal); E78.5 Hyperlipidemia, unspecified; E03.9 Hypothyroidism, unspecified; E55.9 Vitamin D deficiency, unspecified; M79.641 Pain in right hand; M79.642 Pain in left hand
CPT/HCPCS: 80053; 80061; 82306; 84439; 84443; 84550; 85651; 86038; 86225; 86235; 86431; G0103

== ENCOUNTER 2024-09-07 10:34 | Outpatient (CLI) | payer OTHER, SELFPAY ==
[2024-09-07 18:05] LABS: Creatinine,Urine Random 157 mg/dL (Not Estab.)
[2024-09-07 18:06] LABS: Basophils % 0.6 % (0.1-2.0); Eosinophils # 0.3 K/mm3 (0.0-0.4); Eosinophils % 4.2 % (0.1-12.0); Hematocrit 37.9 % (42.0-52.0); Hemoglobin 12.4 g/dL (14.1-18.0); Lymphocytes # 2.1 K/mm3 (0.7-4.5); Lymphocytes % 30.8 % (10-50); Mean Corpuscular HGB Conc 32.7 g/dL (31.8-35.4); Mean Corpuscular Hemoglobin 29.5 pg (27.0-31.2); Mean Corpuscular Volume 90.2 fl (80-94); Mean Platelet Volume 10.3 fl (7.4-10.4); Monocytes # 0.4 K/mm3 (0.1-1.0); Monocytes % 5.7 % (1.7-9.3); Neutrophils % 58.4 % (37.0-80.0); Platelet Count 217 K/mm3 (142-424); Red Cell Distribution Width 13.7 % (11.5-17.5); White Blood Count 6.9 K/mm3 (4.8-10.8)
[2024-09-07 18:21] LABS: Microalbumin < 6.000 mg/L (0-16.7)
[2024-09-07 18:24] LABS: Alanine Aminotransferase 28 U/L (12-78); Albumin Level 4.2 g/dl (3.5-5.0); Albumin/Globulin Ratio 1.9 (1.1-1.8); Alkaline Phosphatase 90 U/L (38-126); Anion Gap 9.8 mEq/L (5-15); Aspartate Amino Transferase 46 U/L (17-59); Bilirubin,Total 0.8 mg/dl (0.2-1.3); Blood Urea Nitrogen 16 mg/dl (9-20); Calcium 9.2 mg/dl (8.4-10.2); Carbon Dioxide 30 mmol/L (22.0-30.0); Chloride 102 mmol/L (98-107); Chol/HDL Ratio 3.3 (1-3.5); Cholesterol 110 mg/dl (140-200); Estimated Glomerular Filt Rate 96 ml/min (>60); GFR (African American) 116 ML/MIN (>60); Globulin 2.2 g/dL (1.3-3.2); Glucose 82 mg/dl (74-100); HDL Cholesterol 33 mg/dl (40-60); Potassium 3.8 mmoL/L (3.5-5.1); Sodium 138 mmol/L (136-145); Total Protein,Serum 6.4 g/dl (6.3-8.2); Triglycerides 60 mg/dl (30-150); VLDL Cholesterol 12 mg/dL (0-40)
[2024-09-07 18:35] LABS: Direct LDL Cholesterol 65.71 mg/dL (100-129)
[2024-09-07 18:48] LABS: Thyroid Stimulating Hormone 3.28 uIU/mL (0.465-4.68)
== END 2024-09-07 23:59 | disposition home or self-care (01) ==
LOC: LAB.DROPOF 09-08 13:16
PROVIDERS: PCP Nurse Practitioner; Visit Provider Nurse Practitioner
DX: E78.5 Hyperlipidemia, unspecified (principal); E03.9 Hypothyroidism, unspecified; K21.9 Gastro-esophageal reflux disease without esophagitis; I10 Essential (primary) hypertension; Z87.891 Personal history of nicotine dependence
CPT/HCPCS: 80053; 80061; 82043; 82570; 84439; 84443; 85025

== ENCOUNTER 2025-01-28 19:45 | Day surgery (SDC) | payer OTHER, SELFPAY ==
[2025-01-28] VITALS (9 sets, daily range): BP systolic 96–190; BP diastolic 50–102; PULSE 62–78; RESP 16; TEMP 36.2–36.6; O2SAT 94–98; BMI 25.8
--- NOTE | 2025-01-28 20:03 | ECG_ITS ---
APPROVED REPORT Exam: Resting ECG HR:55 bpm ECG Measurements Heart Rate 55 AXES [place] 173 P 51 QRSd 95 QRS 4 QT 423 T 39 QTc 411 Conclusion SINUS BRADYCARDIA BORDERLINE ECG Electronically signed by : SEAN GAMBLE, 01/29/2025 12:34:28
--- NOTE | 2025-01-28 20:16 | ED_ITS ---
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 Patient reports that he was eating chicken about 3 hours ago and since then has not been able to tolerate oral intake of liquids. He states that anytime he tries to drink something, it comes back up. He notes that he has a history of getting choked on food frequently, but is never gotten stuck to this point. He states usually he is able to get it cleared on his own. He does follow with Dr. Crump with last endoscopy being October 2023. Related Data Home Medications ?Medication ?Instructions ?Recorded ?Confirmed garlic 1,000 mg capsule 1,000 mg PO QPC Supplement 0 09/12/17 09/14/24 geriatric anjllkzu-xtxi-mraw 1 tab PO QDAY Supplement 09/12/17 09/14/24 omega-3 fatty acids 1,000 mg 1,000 mg PO QDAY Heart di sease 09/12/17 09/14/24 capsule (Fish Oil Concentrate) cetirizine 10 mg capsule 10 mg PO DAILY Allergy sympt oms 01/13/18 09/14/24 coenzyme Q10 100 mg capsule (Co 100 mg PO DAILY Supple ment 10/04/19 09/14/24 Q-10) aspirin 81 mg tablet,delayed 81 mg PO DAILY prevention 06/10/23 09/14/24 release (Adult Aspirin Regimen) vitamin B complex (B 1 tab PO DAILY 08/12/2309/01 Complex-Vitamin B12 tablet) Previous Rx's ?Medication ?Instructions ?Recorded fluticasone propionate 50 1 spray intranasal DAILY #48 grams 03/17/24 mcg/actuation nasal spray,suspension sertraline 100 mg tablet 150 mg (1.5 x 100 mg) PO MELIZA LY 90 09/07/24 days #135 tabs esomeprazole magnesium 40 mg See Rx Instructions .Azeb cornejo 09/10/24 capsule,delayed release .COMPLEX #90 caps montelukast 10 mg tablet See Rx Instructions .Route 0 09/10/24 .COMPLEX #90 tabs levothyroxine 88 mcg tablet See Rx Instructions .Route 11/22/24 .COMPLEX #90 tabs losartan 50 mg-hydrochlorothiazide See Rx Instructions .Route 11/22/24 12.5 mg tablet .COMPLEX #90 tabs atorvastatin 40 mg tablet See Rx Instructions .Route 0 12/22/24 .COMPLEX #90 tabs Allergies Allergy/AdvReac Type Severity Reaction Status Date / Time No Known Allergies Allergy Verified 09/14/24 09:07 [facility] Disclaimer: The information contained in this section may have been updated after the patient was seen, as this information can be updated by other users. Medical History Dizziness ALICIA positive Bilateral hand pain Vitamin D deficiency Asthma History of cataract Tonsil cancer Peyronie's disease Situational mixed anxiety and depressive disorder Allergic rhinitis GERD (gastroesophageal reflux disease) Actinic keratosis Acquired hypothyroidism HTN (hypertension) HLD (hyperlipidemia) Dyspnea Surgical History Hx of colonoscopy History of cataract surgery Family History Other No significant family history Social History Smoking Status: Never smoker second hand exposure: No alcohol intake: never counseling provided: none substance use type: denies use current occupational status: retired Travel in the last 8 weeks?: None household members: spouse housing: house current occupational exposures/hazards: No caffeine: No Have you lived/traveled outside US in past 30 days?: No Contact w/someone who lives/traveled outside US past 30 days?: No Exposure to someone with infectious disease in past 14 days?: No Do you have a fever (greater than 100.4 F or 38 C)?: No Have you tested positive for COVID-19?: No Exposed to someone with COVID-19 in past 14 days?: No Do you have a sore throat?: No Do you have a cough?: No Do you have any weakness?: No Do you have any diarrhea?: No Are you experiencing any unusual bleeding?: No Do you have any muscle aches/pain?: No Do you have any abdominal pain?: No Are you experiencing loss of taste or smell?: No Other Medical History Have you received the Flu Vaccine for this season: Yes Have you received the Pneumonia Vaccine: Yes ROS Obtained: Yes All systems reviewed & no additional complaints except as documented Physical Exam General General appearance: alert and in no apparent distress Head Head exam: atraumatic and normocephalic Eye Eye exam: Present normal appearance, PERRL and EOMI ENT ENT exam: Present normal exam, normal oropharynx, mucous membranes moist and normal external ear exam Neck Neck exam: Present normal inspection, full ROM and trachea midline; Absent tenderness Chest Chest inspection: Present normal inspection and symmetric chest wall rise; Absent tenderness Respiratory Respiratory exam: Present normal lung sounds bilaterally; Absent respiratory distress, wheezes, stridor or accessory muscle use Cardiovascular Cardiovascular exam: Present regular rate and normal rhythm Abdominal Exam Abdominal exam: Present soft; Absent distention, tenderness or guarding Extremities Exam Extremities exam: Present normal inspection, full ROM and normal capillary refill; Absent tenderness or edema Back Exam Back exam: Present normal inspection and full ROM; Absent tenderness Neurological Exam Neurological exam: Present alert, oriented X3, CN II-XII intact and normal gait; Absent motor sensory deficit Psychiatric Psychiatric exam: Present normal affect and normal mood Skin Skin exam: Present warm and dry Medical Decision Making Medical Records Medical records reviewed: Yes I reviewed the patient's medical records. Screening: Per USPSTF and CDC recommendations, given the prevalence of disease in our region, it is our hospital?s policy to screen for HIV and viral Hepatitis for all patients aged 18 and over and those with ongoing risk factors. [place] Inquiry Pt receiving controlled substance: No Vital Signs: 01/28/25 19:49 01/28/25 20:00 01/28/25 20:22 Temperature 97.9 F 97.9 F Temperature Source Oral Oral Pulse Rate 62 Pulse Rate [Right Radial] 70 70 Respiratory Rate 16 16 Blood Pressure 190/102 H Blood Pressure [Right Arm] 178/96 H 190/102 H Blood Pressure Mean [Right Arm] 123 131 Blood Pressure Source [Right Arm] Automatic Cuff Automatic Cuff Blood Pressure Position [Right Arm] Supine Supine 02 Sat by Pulse Oximetry 96 96 94 L Oxygen Delivery Method Room Air Room Air 01/28/25 20:31 Temperature Temperature Source Pulse Rate 73 Pulse Rate [Right Radial] Respiratory Rate Blood Pressure 135/81 Blood Pressure [Right Arm] Blood Pressure Mean [Right Arm] Blood Pressure Source [Right Arm] Blood Pressure Position [Right Arm] 02 Sat by Pulse Oximetry 96 Oxygen Delivery Method Lab Data Lab results reviewed: Yes I reviewed the patient's lab results. Lab Results 01/28/25 19:59: WBC 8.8, RBC 4.32 L, Hgb 13.2 L, Hct 38.8 L, MCV 89.8, MCH 30.6, MCHC 34.0, RDW 13.2, Plt Count 262, MPV 9.8, Neut % (Auto) 69.2, Lymph % (Auto) 20.9, [place] % (Auto) 3.8, Eos % (Auto) 5.0, Baso % (Auto) 0.8, Neut # (Auto) 6.1, Lymph # (Auto) 1.8, [place] # (Auto) 0.3, Eos # (Auto) 0.4, Baso # (Auto) 0.1, Sodium 141, Potassium 3.6, Chloride 101, Carbon Dioxide 35 H, Anion Gap 8.6, BUN 10, Creatinine 0.90, Estimated GFR 84, Est GFR ( Amer) 101, Glucose 111 H , Calcium 9.3 01/28/25 19:59 01/28/25 19:59 Orders (Tests/Meds): ED MEDICATIONS Discontinued Medications Generic Name Dose Route Start Last Admin Trade Name Freq PRN Reason Stop Dose Admin Lactated Ringer's 1,000 mls @ 999 mls/hr 01/28/25 20:14 01/28/25 20:18 Lactated Ringer's 1000 Ml Bag IV 01/28/25 21:14 999 mls/hr .Q1H1M ONE Administration ORDERS Category Date Time Status Consult to General Surgery [CONS] Stat Cons 01/28/25 20:14 Ordered BMP [Basic Metabolic Panel] Stat Lab 01/28/25 19:59 Completed CBC w/Auto Diff [Complete Blood Count Auto Diff] Stat Lab 01/28/25 19:59 Completed ECG Data Tracing #1: I reviewed this ECG and interpreted as documented below: Sinus bradycardia with a ventricular to [address] changes concerning for ischemia. Normal intervals ECG initial impression date: 01/28/25 ECG initial impression time: 20:12 Medical Decision Narrative: In summary, this patient is a 70-year-old male presenting to the Emergency Department for evaluation of possible food bolus with difficulty tolerating oral intake of liquids after eating chicken 3 hours ago. Differential diagnoses considered include but are not limited to food bolus, esophagitis, mass. Ruling out the most morbid conditions drove assessment. It should be noted patient's history includes GERD, hypertension, hyperlipidemia, hypothyroidism, tonsillar cancer status post radiation which may or may not be at goal therapy. This complicates all aspects of care by increasing patient's risk for morbidity. I reviewed patient's past medical records and noted prior evaluation by Dr. 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 On exam, the patient is sitting upright in no acute distress and has no drooling, stridor, trismus. Cardiopulmonary exam is reassuring. He is hypertensive but otherwise vitals are reassuring. EKG obtained demonstrates sinus bradycardia. Workup included CBC and BMP. He was given a bolus of IV fluids. We p.o. challenged him with oral carbonated beverage, but he is not able to take any oral intake of liquids. Given this, I called Dr. Crump with general surgery who advised that he will come in and assess the patient for possible EGD. EKG obtained is reassuring, labs obtained are reassuring. Patient was taken to the OR in stable condition for food bolus Critical Care Critical Care Time Critical Care Time: No
[2025-01-28] MEDS: LACTATED RINGERS 1000ML 1,000 ML 999 ML IV (20:18)
[2025-01-28 20:20] LABS: Basophils # 0.1 K/mm3 (0-0.2); Basophils % 0.8 % (0.1-2.0); Chloride 101 mmol/L (98-107); Eosinophils # 0.4 Kmm3 (0.0-0.4); Hematocrit 38.8 % (42.0-52.0); Hemoglobin 13.2 g/dL (14.1-18.0); Immature Granulocytes # 0.03 10^3uL; Immature Granulocytes % 0.3 %; Lymphocytes # 1.8 K/mm3 (0.7-4.5); Lymphocytes % 20.9 % (10-50); Mean Corpuscular Hemoglobin 30.6 pg (27.0-31.2); Mean Corpuscular Volume 89.8 fl (80-94); Mean Platelet Volume 9.8 fl (7.4-10.4); Monocytes # 0.3 K/mm3 (0.1-1.0); Monocytes % 3.8 % (1.7-9.3); Neutrophils # 6.1 K/mm3 (1.8-7.8); Neutrophils % 69.2 % (37.0-80.0); Nucleated Red Blood Cells # 0 10^3/uL; Nucleated Red Blood Cells % 0 %; Platelet Count 262 K/mm3 (142-424); Red Blood Count 4.32 M/mm3 (4.60-6.20); Red Cell Distribution Width 13.2 % (11.5-17.5); Red Cell Distribution Width-SD 43.7 fL; Sodium 141 mmol/L (136-145); White Blood Count 8.8 K/mm3 (4.8-10.8)
[2025-01-28 20:21] LABS: Potassium 3.6 mmoL/L (3.5-5.1)
[2025-01-28 20:24] LABS: Anion Gap 8.6 mEq/L (5-15); Blood Urea Nitrogen 10 mg/dl (9-20); Calcium 9.3 mg/dl (8.4-10.2); Carbon Dioxide 35 mmol/L (22.0-30.0); Estimated Glomerular Filt Rate 84 ml/min (>60); GFR (African American) 101 ML/MIN (>60); Glucose 111 mg/dl (74-100)
--- NOTE | 2025-01-28 20:47 | PC.NURSE ---
Dr. Crump at bedside at this time.
--- NOTE | 2025-01-28 20:52 | P.HP_ITS ---
HPI HPI HPI: Patient is a 70-year-old male with history of gastroesophageal reflux disease and head and neck cancer. He has a history of tonsillar carcinoma and underwent radiation therapy sometime ago. 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 I performed EGD in 2020 at which time he he had cricopharyngeal narrowing. There was some nonspecific duodenitis. Gastroesophageal junction biopsies were negative for Marx's esophagus at that time. He had upper endoscopy and colonoscopy on 11/07/2023. At that time he was found to have some tortuosity of the esophagus with GE junction at approximately 38 cm and findings potentially consistent with focal Marx's esophagus. Biopsies revealed no evidence of any Marx's esophagus but he did have mild chronic inflammation and nonspecific mild mucosal hyperplasia. He has had symptoms of cervical dysphagia but never required upper endoscopy for food impaction. He was eating chicken approximately 5 PM and since then has been unable to swallow secretions. Has had nausea and retching. He presented to the emergency department and surgical consultation was obtained. [facility] Disclaimer: The information contained in this section may have been updated after the patient was seen, as this information can be updated by other users. Medical History Dizziness ALICIA positive Bilateral hand pain Vitamin D deficiency Asthma History of cataract Tonsil cancer Peyronie's disease Situational mixed anxiety and depressive disorder Allergic rhinitis GERD (gastroesophageal reflux disease) Actinic keratosis Acquired hypothyroidism HTN (hypertension) HLD (hyperlipidemia) Dyspnea Surgical History Hx of colonoscopy History of cataract surgery Family History Other No significant family history Social History Smoking Status: Former smoker second hand exposure: No alcohol intake: never counseling provided: none substance use type: denies use current occupational status: retired Travel in the last 8 weeks?: None household members: spouse housing: house current occupational exposures/hazards: No caffeine: No Have you lived/traveled outside US in past 30 days?: No Contact w/someone who lives/traveled outside US past 30 days?: No Exposure to someone with infectious disease in past 14 days?: No Do you have a fever (greater than 100.4 F or 38 C)?: No Have you tested positive for COVID-19?: No Exposed to someone with COVID-19 in past 14 days?: No Do you have a sore throat?: No Do you have a cough?: No Do you have any weakness?: No Do you have any diarrhea?: No Are you experiencing any unusual bleeding?: No Do you have any muscle aches/pain?: No Do you have any abdominal pain?: No Are you experiencing loss of taste or smell?: No Other Medical History Have you received the Flu Vaccine for this season: Yes Have you received the Pneumonia Vaccine: Yes Meds Home Medications and Allergies Home Medications ?Medication ?Instructions ?Recorded ?Confirmed ?Type garlic 1,000 mg capsule 1,000 mg PO QPC Supplement 0 09/12/17 09/14/24 History geriatric [id number]-ylce-[id number] 1 tab PO QDAY Supplement 09/12/17 09/14/24 History omega-3 fatty acids 1,000 mg 1,000 mg PO QDAY Heart di sease 09/12/17 09/14/24 History capsule (Fish Oil Concentrate) cetirizine 10 mg capsule 10 mg PO DAILY Allergy sympt oms 01/13/18 09/14/24 History coenzyme Q10 100 mg capsule (Co 100 mg PO DAILY Supple ment 10/04/19 09/14/24 History Q-10) aspirin 81 mg tablet,delayed 81 mg PO DAILY prevention 06/10/23 09/14/24 History release (Adult Aspirin Regimen) vitamin B complex (B 1 tab PO DAILY 08/12/2309/01 History Complex-Vitamin B12 tablet) fluticasone propionate 50 1 spray intranasal DAILY #48 grams 03/17/24 09/14/24 Rx mcg/actuation nasal spray,suspension sertraline 100 mg tablet 150 mg (1.5 x 100 mg) PO MELIZA LY 90 09/07/24 09/14/24 Rx days #135 tabs esomeprazole magnesium 40 mg See Rx Instructions .Rout e 09/10/24 09/14/24 Rx capsule,delayed release .COMPLEX #90 caps montelukast 10 mg tablet See Rx Instructions .Route 0 09/10/24 09/14/24 Rx .COMPLEX #90 tabs levothyroxine 88 mcg tablet See Rx Instructions .Route 11/22/24 Rx .COMPLEX #90 tabs losartan 50 mg-hydrochlorothiazide See Rx Instructions .Route 11/22/24 Rx 12.5 mg tablet .COMPLEX #90 tabs atorvastatin 40 mg tablet See Rx Instructions .Route 0 12/22/24 Rx .COMPLEX #90 tabs New Prescriptions to Start Prescriptions: Allergies Allergy/AdvReac Type Severity Reaction Status Date / Time No Known Allergies Allergy Verified 09/14/24 09:07 Exam Data for Last 24 hours Vital signs and Labs for Last 24 Hours: Temp Pulse Resp BP Pulse Ox O2 Del Method 97.9 F 73 16 135/81 96 Room Air 01/28/25 20:22 01/28/25 20:31 01/28/25 20:22 01/28/25 20:31 01/28/25 20:31 01/28/25 20:22 Laboratory Results - last 24 hr 01/28/25 19:59: WBC 8.8, RBC 4.32 L, Hgb 13.2 L, Hct 38.8 L, MCV 89.8, MCH 30.6, MCHC 34.0, RDW 13.2, Plt Count 262, MPV 9.8, Neut % (Auto) 69.2, Lymph % (Auto) 20.9, [place] % (Auto) 3.8, Eos % (Auto) 5.0, Baso % (Auto) 0.8, Neut # (Auto) 6.1, Lymph # (Auto) 1.8, [place] # (Auto) 0.3, Eos # (Auto) 0.4, Baso # (Auto) 0.1, Sodium 141, Potassium 3.6, Chloride 101, Carbon Dioxide 35 H, Anion Gap 8.6, BUN 10, Creatinine 0.90, Estimated GFR 84, Est GFR ( Amer) 101, Glucose 111 H , Calcium 9.3 Constitutional Constitutional: no acute distress *Routine HEENT Exam Head: Present normocephalic Eye: Present EOMI and PERRL ENT: Present mucous membranes moist *Routine Neck Exam Neck: Present supple; Absent lymphadenopathy *Routine Respiratory Exam Respiratory: Present CTA bilaterally *Routine Cardiovascular Exam Cardiovascular: Present RRR *Routine Abdominal Exam Abdominal: Present soft and normoactive bowel sounds; Absent tenderness *Routine Rectal Exam Rectal:: deferred *Routine Genitalia Exam Genitalia:: deferred *Routine Extremities Exam Extremities: Absent cyanosis, clubbing or edema *Routine Skin Exam Skin: Present warm; Absent rash *Routine Neurological Exam Neurological: Present alert and oriented X3 Results Results Lab Results Last 24 Hours:: Laboratory Results - last 24 hr 01/28/25 19:59: WBC 8.8, RBC 4.32 L, Hgb 13.2 L, Hct 38.8 L, MCV 89.8, MCH 30.6, MCHC 34.0, RDW 13.2, Plt Count 262, MPV 9.8, Neut % (Auto) 69.2, Lymph % (Auto) 20.9, [place] % (Auto) 3.8, Eos % (Auto) 5.0, Baso % (Auto) 0.8, Neut # (Auto) 6.1, Lymph # (Auto) 1.8, [place] # (Auto) 0.3, Eos # (Auto) 0.4, Baso # (Auto) 0.1, Sodium 141, Potassium 3.6, Chloride 101, Carbon Dioxide 35 H, Anion Gap 8.6, BUN 10, Creatinine 0.90, Estimated GFR 84, Est GFR ( Amer) 101, Glucose 111 H , Calcium 9.3 Assessment and Plan *Assessment and plan (1) Food bolus obstruction of intestine: Status: Acute Category: Medical Code(s): K56.699 - Other intestinal obstruction unspecified as to partial versus complete obstruction; W44.F3XA - Food entering into or through a natural orifice, initial encounter Plan Plan to proceed with upper endoscopy for presumed esophageal obstruction secondary to food impaction.
--- NOTE | 2025-01-28 20:55 | PC.NURSE ---
OR staff here to get patient
--- NOTE | 2025-01-28 20:59 | P.PCN_ITS ---
Procedure: Date: 01/28/25 Patient Date of :: 1955 Procedure Performed:: Esophagogastroscopy with extraction of food impaction Indications:: Patient is a 70-year-old male with history of gastroesophageal reflux disease and head and neck cancer. He has a history of tonsillar carcinoma and underwent radiation therapy sometime ago. 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 I performed EGD in 2020 at which time he he had cricopharyngeal narrowing. There was some nonspecific duodenitis. Gastroesophageal junction biopsies were negative for Marx's esophagus at that time. He had upper endoscopy and colonoscopy on 11/07/2023. At that time he was found to have some tortuosity of the esophagus with GE junction at approximately 38 cm and findings potentially consistent with focal Marx's esophagus. Biopsies revealed no evidence of any Marx's esophagus but he did have mild chronic inflammation and nonspecific mild mucosal hyperplasia. He has had symptoms of cervical dysphagia but never required upper endoscopy for food impaction. He was eating chicken approximately 5 PM and since then has been unable to swallow secretions. Has had nausea and retching. He presented to the emergency department and surgical consultation was obtained. Performing Provider:: Demetrius Crump MD Referring Provider:: Serena Weathers Sedation:: MAC sedation Procedure:: Patient history was obtained and appropriate physical examination was performed. Patient's medications and allergies were reviewed. Informed consent was obtained after explaining the benefits, alternatives, and risks of the procedure including, but not limited to, bleeding, perforation, missed lesions, and adverse reaction to anesthesia medications. Patient was transported to endoscopy procedure room. Patient was connected to monitoring devices. Throughout the procedure the patient's blood pressure, pulse, and oxygen saturations were monitored continuously. Patient identifica tion and planned procedure were verified by the staff. Patient was positioned in lateral decubitus position. Olympus endoscope was inserted via the oropharynx. Pharynx was cannulated. There is immediately noted to be a large meat impaction within the posterior pharynx. Consideration is being given to intubate the patient and taken to the operating room for laryngoscopy. However the E suction device was attached to the endoscope. This was able to be inserted and applying suction with the e- suction grasping device the food impaction was able to be grasped and withdrawn from the oropharynx. The suction device was then removed from the endoscope. Endoscope was inserted and esophagus was cannulated. Endoscope was able to be advanced the remainder of the esophagus with no additional food impaction noted. Stomach was cannulated. There was some food present within the stomach. Stomach was desufflated and endoscope was withdrawn. . Findings:: Food impaction in pharynx. Recommendations:: Recommend full liquids for at least 24 hours and following that avoidance of meat products. Likely needs ENT evaluation. Complications:: None immediately apparent Estimated blood obtained (mL): 0 Colonoscopy Component Colonoscopy Component Was a colonoscopy performed during today's procedure?: No
--- NOTE | 2025-01-28 21:02 | EXP.ANES.CKL ---
[facility] Disclaimer: The information contained in this section may have been updated after the patient was seen, as this information can be updated by other users. Medical History Dizziness ALICIA positive Bilateral hand pain Vitamin D deficiency Asthma History of cataract Tonsil cancer Peyronie's disease Situational mixed anxiety and depressive disorder Allergic rhinitis GERD (gastroesophageal reflux disease) Actinic keratosis Acquired hypothyroidism HTN (hypertension) HLD (hyperlipidemia) Dyspnea Surgical History Hx of colonoscopy History of cataract surgery Family History Other No significant family history Social History Smoking Status: Never smoker second hand exposure: No alcohol intake: never counseling provided: none substance use type: denies use current occupational status: retired Travel in the last 8 weeks?: None household members: spouse housing: house current occupational exposures/hazards: No caffeine: No Have you lived/traveled outside [place] in past 30 days?: No Contact w/someone who lives/traveled outside US past 30 days?: No Exposure to someone with infectious disease in past 14 days?: No Do you have a fever (greater than 100.4 F or 38 C)?: No Have you tested positive for COVID-19?: No Exposed to someone with COVID-19 in past 14 days?: No Do you have a sore throat?: No Do you have a cough?: No Do you have any weakness?: No Do you have any diarrhea?: No Are you experiencing any unusual bleeding?: No Do you have any muscle aches/pain?: No Do you have any abdominal pain?: No Are you experiencing loss of taste or smell?: No [facility] [place] Anesthesia Checklist Patient Identification Patient Identification: Arm Band Structural Data Admitted From: Home Planned Operative Procedure/s: EGD- Removal of Esophageal Food Bolus Consent for Planned Operative Procedure(s) Verified: Yes Verified Documents: Surgical Consent and History and Physical NPO Status Verified Time NPO: 17:00 Additional verifications Anesthesia Reactions: Yes ( hard to wake ) Airway Assessment Mallampati Score:: Class II C-Spine Mobility Assessed: Yes TMJ Mobility Assessed: Yes Dentition: Good Dentition Neurological Assessment Level of Consciousness: Awake, Alert and Appropriate Anesthesia Plan Anesthesia Risk discussed: Yes Anesthesia Plan: Verified ASA Class: II Anesthesia Type: MAC
== END 2025-01-28 21:45 | disposition home or self-care (01) ==
LOC: ER 20:36 → SDC 20:58
PROVIDERS: Emergency Provider Emergency Medicine; PCP Nurse Practitioner; Visit Provider Surgery
PROC: 0DJ08ZZ Inspection of Upper Intestinal Tract, Via Natural or Artificial Opening Endoscopic (ICD-10-PCS; CPT 43247; principal; 2025-01-28 21:00)
DX: T17.228A Food in pharynx causing other injury, initial encounter (principal); W44.F3XA Food entering into or through a natural orifice, initial encounter; Y93.89 Activity, other specified; Y92.89 Other specified places as the place of occurrence of the external cause; Y99.8 Other external cause status; E55.9 Vitamin D deficiency, unspecified; J45.909 Unspecified asthma, uncomplicated; K21.9 Gastro-esophageal reflux disease without esophagitis; E03.9 Hypothyroidism, unspecified; I10 Essential (primary) hypertension; E78.5 Hyperlipidemia, unspecified; Z85.89 Personal history of malignant neoplasm of other organs and systems; Z92.3 Personal history of irradiation; Z87.891 Personal history of nicotine dependence; Z79.899 Other long term (current) drug therapy; Z79.82 Long term (current) use of aspirin; Z79.51 Long term (current) use of inhaled steroids
CPT/HCPCS: 43247; 80048; 85025; 93005; J2003; J2704; J7120

== ENCOUNTER 2025-03-11 08:20 | Outpatient (CLI) | payer OTHER, SELFPAY ==
[2025-03-11 14:28] LABS: Alanine Aminotransferase 23 U/L (12-78); Albumin Level 3.9 g/dl (3.5-5.0); Albumin/Globulin Ratio 1.6 (1.1-1.8); Alkaline Phosphatase 78 U/L (38-126); Anion Gap 11.6 mEq/L (5-15); Aspartate Amino Transferase 35 U/L (17-59); Bilirubin,Total 0.5 mg/dl (0.2-1.3); Blood Urea Nitrogen 13 mg/dl (9-20); Calcium 9.0 mg/dl (8.4-10.2); Carbon Dioxide 34 mmol/L (22.0-30.0); Chloride 98 mmol/L (98-107); Cholesterol 129 mg/dl (140-200); Creatinine,Serum 0.90 mg/dl (0.66-1.25); Estimated Glomerular Filt Rate 84 ml/min (>60); GFR (African American) 101 ML/MIN (>60); Globulin 2.4 g/dL (1.3-3.2); Glucose 98 mg/dl (74-100); HDL Cholesterol 37 mg/dl (40-60); Potassium 3.6 mmoL/L (3.5-5.1); Sodium 140 mmol/L (136-145); Total Protein,Serum 6.3 g/dl (6.3-8.2); Triglycerides 78 mg/dl (30-150)
[2025-03-11 14:46] LABS: 25-OH Vitamin D, Total 55.7 ng/mL (30-100)
[2025-03-11 14:47] LABS: Free T4 (Free Thyroxine) 0.98 ng/dl (0.78-2.19)
[2025-03-11 14:59] LABS: Thyroid Stimulating Hormone 2.60 uIU/mL (0.465-4.68)
[2025-03-11 15:18] LABS: Vitamin B12 658 pg/mL (239-931)
--- OUTSIDE RECORDS SUMMARY | 2025-03-14 11:45 | XMS_ITS | Encounter Summary ---
Author Organization [facility] Address [address] [place] [address] Care Team Providers Care Supervisor Alteration Workroom Name Role Phone Venkatesh Marx MD Unavailable Dexter Tillman MD Unavailable Unavailable Yadiel Acuna MD Primary Care Provider [phone] Source Comments This information has been disclosed to you from confidential records protectfrom disclosure by state law. You shall make no further disclosure of thisinformation without the specific, written, and informed release of theindividual to whom it pertains, or as otherwise permitted by law. A generalauthorization for the release of medical or other information is not sufficientfor the purposes of the release of HIV test results or diagnoses. [id number] Health Encounter Details Date Type Department Care Team (Late st Contact Info) Description 06/17/2016 Orders Only [facility] Radiation Therapy at [facility] [address] [place] [phone] Venkatesh Marx MD [address] 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 [place] [address] PCP - General Family Medicine 03/20/16 Venkatesh Marx MD Consulting Physician Radiation Oncology 04/10/16 Dexter Tillman MD Referring Physician [facility] Medical Oncology 04/10/16 documented as of this encounter
--- OUTSIDE RECORDS SUMMARY | 2025-03-14 11:45 | XMS_ITS | Clinical Summary ---
Author Organization [facility] Address [address] [place] [address] Phone Care Team Providers Care Furniture Dipper Name Role Phone Unavailable Primary Care Provider Unavailabl e Allergies No known active allergies Medications atorvastatin (LIPITOR) 40 mg Oral Tablet Take 40 mg by mouth daily. 4 06/01/2019 Active esomeprazole (NEXIUM) 40 mg Oral Capsule, Delayed Release(E.C.) Take 40 mg by mouth daily. 3 06/08/2019 Active LEVOthyroxine (SYNTHROID) 75 mcg Oral Tablet Take 75 mcg by mouth daily. 2 06/17/2019 Active pentoxifylline (TRENTAL) 400 mg Oral Tablet Sustained Release Take 400 mg by mouth 3 times daily. 11 06/17/2019 Active omega-3 fatty acids/fish oil (FISH OIL OMEGA-3 FATTY ACIDS) 300-1,000 mg Oral Capsule Take 1,400 mg by mouth daily. Active montelukast (SINGULAIR) 10 mg Oral Tablet Take 10 mg by mouth every evening. Active aspirin 81 mg Oral Capsule Take by mouth. Active sertraline 150 mg Oral Capsule Take by mouth. Active Garlic 1,000 mg Oral Capsule Take 2,000 mg by mouth. Active cetirizine (ZYRTEC) 10 mg Oral Tablet Take 10 mg by mouth daily. Active Coenzyme Q10 100 mg Oral Capsule Take 200 mg by mouth daily. Active multivitamin (THERAGRAN) Oral Tablet Take 1 Tablet by mouth daily. Active Glucosamine Schreiber 2KCL-Chondroit (GLUCOSAMINE-CHO NDROITIN DS) 500-400 mg Oral Capsule Take by mouth. takes 2 Active Cholecalciferol, Vitamin D3, (VITAMIN D3) 125 mcg (5,000 unit) Oral Tablet Take by mouth. Active Active Problems No known active problems Surgical History Surgery Date Site/Laterality Comments HEMORRHOID SURGERY CARPAL TUNNEL RELEASE 07/07/2019 Bilateral BILATERAL CARPAL TUNNEL RELEASE; Surgeon: Toby Hall MD; Location: [facility]; Service: Orthopedics Medical History Medical History Date Comments Asthma as a child Arthritis Thyroid disease overactive Cancer (HCC) tonsil Post-operative nausea and vomiting Essential (primary) hypertension Social History Tobacco Use Types Packs/Day Years Used Date Smoking Tobacco: Never Tobacco Cessation:Counseling Given: Not Answered Sex and Gender Information Value Date Recorded Sex Assigned at Not on file Legal Sex Male 8:10 AM EDT Gender Identity Not on file Sexual Orientation Not on file Obstetrics History Last Filed Vital Signs Vital Sign Reading Time Taken Comments Blood Pressure 110/70 11/05/2024 11:00 AM EST Pulse 48 07/07/2019 8:54 AM EST Temperature 36.4 C (97.6 F) 07/07/2019 7:43 AM EST Respiratory Rate 17 11/05/2024 11:00 AM EST Oxygen Saturation 98% 07/07/2019 8:54 AM EST Inhaled Oxygen Concentration - - Weight 83.5 kg (184 lb) 11/05/2024 11:00 AM EST Height 177.8 cm (5' 10 ) 11/05/2024 11:00 AM EST Body Mass Index 26.4 11/05/2024 11:00 AM EST Plan of Treatment Health Maintenance Due Date Last Done Comments Annual Wellness Exam 01/24/1959 Cologuard 01/24/2001 Colon Cancer Screening 01/24/2001 Colonoscopy 01/24/2001 FIT 01/24/2001 Sigmoidoscopy 01/24/2001 Virtual Colonography 01/24/2001 Zoster (1 of 2) 01/24/2006 COVID-19 Vaccine ( - 2023-2 5 season) 2024 Influenza Vaccine (#1) 2025 Pneumococcal Vaccine 50+ (3 of 3 - PCV20 or PCV21) 11/30/2026 11/30/2021, 07/27/2014 DTaP/TDaP/Td (2 - Td or Tdap) 03/16/2032, 07/08/2007 Hepatitis C Screening Completed 11/05/2024 Hepatitis B Vaccine Aged Out No longe r eligible based on patient's age to complete this topic Meningococcal B Vaccine Aged Out No l onger eligible based on patient's age to complete this topic Procedures Procedure Name Priority Date/Time Associated Diagnosis Comments HCV ANTIBODY SCREEN W/ REFLEX Routine 11/05/2024 12:25 PM EST Pain in both hands from Last 3 Months or Most Recently Relevant to Health Maintenance Results * (ABNORMAL) HCV ANTIBODY SCREEN W/ REFLEX (11/05/2024 12:25 PM EST) Hep C Ab Reactive(A ) Non-Reacti ve 11/05/2024 1:30 PM EST [employer]REFERRED [employer] Comment: Antibodies to HCV detected. HCV RNA QUANT will be performed. Blood VENOUS BLOOD / Unknown Venipuncture / Unknown 11/05/2024 12:25 PM EST 11/05/2024 12:25 PM EST Narrative [employer] [employer] - 11/05/2024 1:30 PM EST Test performed using [employer] Elecsys electrochemiluminescence immunassay (ECLIA). Kathryn Landon APRN HEMATOLOGY ORDERABLES Carissa jaeger Result Critical Media [address] [facility] , [address] [place] [id number] from Last 3 Months or Most Recently Relevant to Health Maintenance Insurance [id number] [facility] [address] [place] [id number] [place] [address] [facility] [place] [facility]
--- OUTSIDE RECORDS SUMMARY | 2025-03-14 11:45 | XMS_ITS | Encounter Summary ---
Author Organization [facility] Address [address] [place] [address] Care Team Providers Care Ext Js Developer Name Role Phone Venkatesh Marx MD Unavailable [phone] Dexter Tillman MD Unavailable Unavailable Yadiel Acuna MD Primary Care Provider [phone] Source Comments This information has been disclosed [...] release of HIV test results or diagnoses. [id number] Health Encounter Details Date Type Department Care Team (Late st Contact Info) Description 06/14/2016 Orders Only [facility] Radiation Therapy at [facility] [address] [place] [phone] Venkatesh Marx MD [address] [facility] 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 [place] [address] PCP - General Family Medicine 03/20/16 Venkatesh Marx MD Consulting Physician Radiation Oncology 04/10/16 Dexter Tillman MD Referring Physician [facility] Medical Oncology 04/10/16 documented as of this encounter
--- OUTSIDE RECORDS SUMMARY | 2025-03-14 11:45 | XMS_ITS | Clinical Summary ---
Author Organization [facility] Address [address] [place] [address] Care Team Providers Care Tobacco Grader Name Role Phone Venkatesh Marx MD Unavailable [phone] Dexter Tillman MD Unavailable Unavailable Yadiel Acuna MD Primary Care Provider [phone] Source Comments This information has been disclosed to you from confidential records protectedfrom disclosure by state law. You shall make no further disclosure of thisinformation without the specific, written, and informed release of theindividual to whom it pertains, or as otherwise permitted by law. A generalauthorization for the release of medical or other information is not sufficientfor the purposes of therelease of HIV test results or diagnoses. [id number] Allergies No known active allergies Medications fish oil-omega-3 fatty acids 300-1,000 mg capsule Take 1,400 mg by mouth daily. Unsure of brand Active GLUCOSAM HCL/CHONDRO FIORE A/C/MN (GLUCOSAMINE-CHO NDROITIN COMPLX ORAL) Take 2 tablets by mouth daily. Equate brand Active loratadine (CLARITIN) 10 mg tablet Take 1 tablet (10 mg total) by mouth daily. Active multivitamin (THERAGRAN) tablet Take 1 tablet by mouth daily. VitaBasic Sr. Do not take during chemo and radiation Active UNABLE TO FIND Take 3 capsules by mouth daily. Nneka-fusion for hair, skin and nails. Do not take during chemo and radiation Active lidocaine-priloc kevin (EMLA) creamIndications :Tonsil cancer (CMS-HCC) Apply 1 tsp to port prior to use 30 g 0 6 Active polyethylene glycol (MIRALAX) 17 gram/dose powderIndication s:Tonsil cancer ([facility]),Consti pation, unspecified constipation type Take 17 g by mouth 2 times a day. 255 g 2 6 Active saliva substitute combo no.9 (BIOTENE PBF) MwshIndications: Dry mouth 10 mLs by Mucous Membrane route 4 times a day. 473 mL 2 6 Active nystatin-diphenh ydrAMINE-lidocai ne HCl-rivera syrup in sterile water irrigationIndica tions:Thrush,Ton arslan cancer ([facility]) Take 5 mL by mouth three times daily, swish and spit 240 mL 3 6 Active fluconazole (DIFLUCAN) 100 MG tabletIndication s:Thrush Take 1 tablet (100 mg total) by mouth daily. Take 2 tablets the first day and one a day until they are gone 15 tablet 0 6 Active Additional Information Patient taking differently: 200 mgOral Daily, Take 2 tablets the first day and one a day until they are gone, Reported on 08/16/2024 montelukast (SINGULAIR) 10 mg tablet Take 1 tablet (10 mg total) by mouth daily. 2 7 Active fluticasone-salm eterol (ADVAIR) 100-50 mcg/dose diskus inhaler Inhale 1 puff into the lungs 2 times a day. Active FLUCELVAX QUAD 5310-8655, PF, Syrg 7 Active pilocarpine (SALAGEN) 5 MG tablet 7 Active cetirizine (ZYRTEC) 10 MG tablet Take 1 tablet (10 mg total) by mouth daily. Active atorvastatin (LIPITOR) 40 MG tablet Take 1 tablet (40 mg total) by mouth daily. 5 8 Active coenzyme Q-10 (CO Q-10) 100 mg capsule Take 2 capsules (200 mg total) by mouth daily. Active garlic 1,000 mg CapIndications:t shalonda 2 1,000 mg cap daily Take 2,000 mg by mouth. Indications: take 2 1,000 mg cap daily Active vit b complex w-b 12 tablet Take 1 tablet by mouth daily. Active omeprazole (PRILOSEC) 40 MG capsuleIndicatio ns:Tonsil cancer (CMS-HCC) Take 1 capsule (40 mg total) by mouth every morning before breakfast. 30 capsule 8 Active esomeprazole (NEXIUM) 40 MG capsule Take 1 capsule (40 mg total) by mouth daily. 12 8 Active AMOXicillin (AMOXIL) 250 MG capsule Take 1 capsule (250 mg total) by mouth 3 times a day. 0 8 Active pentoxifylline (TRENTAL) 400 mg CR tablet Take 1 tablet (400 mg total) by mouth 3 times a day with meals. 9 Active Hospital, Clinic, or Other Facility Administered Medication Ordered Dose Route Frequency Start Date End Date Status sodium chloride 0.9 % infusion 2,000 mLIndications:Tonsil cancer (CMS-HCC) 2000 mL IV Once 06/14/2016 Active ondansetron (ZOFRAN) 4 mg/2 mL injection 8 mgIndications:Tonsil cancer ([facility]) 8 mg IV Once 06/14/2016 Active sodium chloride 0.9 % infusion 2,000 mLIndications:Tonsil cancer ([facility]) 2000 mL IV Once 06/17/2016 Active ondansetron (ZOFRAN) 4 mg/2 mL injection 8 mgIndications:Tonsil cancer ([facility]) 8 mg IV Once 06/17/2016 Active morphine injection 2 mg 2 mg IV Once 06/14/2016 A ctive morphine injection 2 mg 2 mg IV Once 06/17/2016 A ctive Active Problems Patient Care Coordination No te Formatting of this note is d ifferent from the original. Mr. Matteo Dickerson is 61 year old male who is being referred by Dr. Jm Lowery to discuss radiation therapy for oropharyngeal cancer. Mr. Dickerson reports swelling right side of neck and sore throat for approximately one month. He initially was seen by PCP, Dr. Acuna and he treating him for an antibiotic. Blood work and a strep test was done. There was no improvement with antibiotic. He was referred for Ultrasound, and CT scan and FNA on 02/28/2016 at [facility]. AFter biopsy on 02/28/2016 he was referred to Dr. Lorenzo. Dr. Lorenzo examined and said it started in tonsils and spread to other places. Dr. Lorenzo didn't do robotic type insurance Mr. Dickerson was referred Dr. Cain. Dr. Cain did not accept insurance so he was then referred to Dr. Jm Lowery. Mr. Dickerson denies pain at the time of face to face interview. Mr. Dickerson has appointments today with Dr. Dexter Tillman, Dr. Jm Lowery and for a PET scan. Mr. Dickerson denies pain at the time of face to face interview. Radiology 02/12/2016 US soft tissue neck done at [facility] Impression: There is a 2.6 x 1.7 x 2 cm oval area of heterogeneous decreased echogenicity in the right neck likely related to the enlarged lymph node. This is at the angle of the mandible. Submandibular glands have an unremarkable appearance.there are other smaller nodes present in both right and left neck aspect of the neck 02/19/2016 CT scan done at [facility] Impression: 1. Enlarged right neck node/ass measuring 2.6 cm length and 2.2 cm diameter. This is seen just below the angle of mandible at jugulodigastric node region. basically isolated enlarged node. Only a few scattered unimpressive nodes otherwise seen. 2. Asymmetric enlargement with fullness at right palatine tonsil which bulges toward midline. This requires clinical correlation. 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 04/18/2016 Overview (04/10/2016): Invasive Immunizations Immunization Administration Dates Next Due Td 07/08/2007 Family History Medical History Relation Comments Coronary artery disease Father Breast Cancer Mother Relation Status Comments Father Mother Alive Social History Tobacco Use Types Packs/Day Years Used Date Smoking Tobacco: Former Cigarettes 1.5 17 0 03/20/1974 - 03/20/1991 Smokeless Tobacco: Never Alcohol Use Standard Drinks/Week Comments No 0 (1 standard drink = 0.6 oz pur e alcohol) PHQ-2 Answer Date Recorded PHQ-2 Total Score 0 08/11/2023 Yearly Questionnaire Answer Date Record ed Do you need any assistance w ith obtaining housing, meals, medication, transportation or medical equipment? No 08/11 Assistance needed for: Not on file 3 Yearly Questionnaire Answer Date Record ed Do you need any assistance w ith obtaining housing, meals, medication, transportation or medical equipment? No 08/11 Assistance needed for: Not on file 3 Yearly Questionnaire Answer Date Record ed Do you need any assistance w ith obtaining housing, meals, medication, transportation or medical equipment? 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 on file Not on file Not on file Last Filed Vital Signs Vital Sign Reading Time Taken Comments Blood Pressure 129/73 08/16/2024 10:01 AM EST Pulse 64 08/16/2024 10:01 AM EST Temperature 35.6 C (96.1 F) 08/16/2024 10:01 AM EST Respiratory Rate 16 08/16/2024 10:01 AM EST Oxygen Saturation 100% 08/16/2024 10:01 AM EST Inhaled Oxygen Concentration 100% 08/16/2024 1 0:01 AM EST Weight 81.7 kg (180 lb 3.2 oz) 08/16/2024 10:01 AM EST Height 177.8 cm (5' 10 ) 08/16/2024 10:01 AM EST Body Mass Index 25.86 08/16/2024 10:01 AM EST Plan of Treatment Health Maintenance Due Date Last Done Comments Abnormal Colonoscopy Follow Up 1955 Hepatitis C Screening (MyChart) 1955 Immunization: COVID-19 (#1) 01/24/1961 Alcohol Misuse Screening 01/24/1974 Immunization: Zoster (1 of 2) 01/24/1975 Cologuard (FIT-DNA) 01/24/2001 Colonoscopy 01/24/2001 Colorectal Cancer Screening (MyChart) 01/24/2001 Stool Testing (gFOBT) 01/24/2001 Immunization: RSV (Adult) (1 - Risk 60-74 years 1-dose series) 2016 Abdominal Aortic Aneurysm (AAA) Screening 01/24/2021 Depression Screening 08/11/2024 08/11/2023, 08/12/2022, 08/13/2021, Additional history exists Immunization: Influenza (MyChart) (#1) 2025 Immunization: Pneumococcal (3 of 3 - PCV20 or PCV21) 11/30/2026 11/30/2021, 07/27/2014 Immunization: DTaP/Tdap/Td (2 - Td or Tdap) 03/16/2032 03/16/2022, 07/08/2007 Immunization: HPV Aged Out No longer eligible based on patient's age to complete this topic Insurance [facility] Care Teams Tobacco Grader Relationship Specialty Start Date End Date Yadiel Acuna MD [address] [facility] [address] [place] [address] PCP - General Family Medicine 03/20/16 Venkatesh Marx MD Consulting Physician Radiation Oncology 04/10/16 Dexter Tillman MD Referring Physician [facility] Medical Oncology 04/10/16
--- OUTSIDE RECORDS SUMMARY | 2025-03-14 11:45 | XMS_ITS ---
Author Organization [facility] Address [address] [place] [address] Care Team Providers Care Hedge Fund Principal Name Role Phone Venkatesh Marx MD Unavailable [phone] Dexter Tillman MD Unavailable Unavailable Yadiel Acuna MD Primary Care Provider [phone] Active Problems Patient Care Coordination No te [...] CT scan and FNA on 02/28/2016 at [facility]. AFter biopsy on 02/28/2016 he was referred to Dr. Lorenzo. Dr. Lorenzo examined and said it started in tonsils and spread to other places. Dr. Lorenzo didn't do robotic type insurance Mr. Dickerson was referred Dr. Cain. Dr. Cani did not accept insurance so he was then referred to Dr. Jm Lowery. Mr. Dickerson denies pain at the time of face to face interview. Mr. Dickerson has appointments today with Dr. Dexter Tillman, Dr. Jm Lowery and for a PET scan. Mr. Dickerson denies pain at the time of face to face interview. Radiology 02/12/2016 US soft tissue neck done at [facility] Impression: There is a 2.6 x 1.7 x 2 cm oval area of heterogeneous decreased echogenicity in the right neck likely related to the enlarged lymph node. This is at the angle of the mandible. Submandibular glands have an unremarkable appearance.there are other smaller nodes present in both right and left neck aspect of the neck 02/19/2016 CT scan done at [facility] Impression: 1. Enlarged right neck node/ass measuring [...] by LISETTE Cooney on 01/08/2017 Pathologic: Unsigned Current Treatment and Therapy Plans No current plan information found. 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
--- OUTSIDE RECORDS SUMMARY | 2025-03-14 11:45 | XMS_ITS | Encounter Summary ---
Author Organization [facility] Address [address] [place] [address] Care Team Providers Care Inclusion Specialist Name Role Phone Venkatesh Maxr MD Unavailable [phone] Dexter Tillman MD Unavailable Unavailable Yadiel Acuna MD Primary Care Provider [phone] Source Comments This information has been disclosed [...] release of HIV test results or diagnoses. [id number] Health Encounter Details Date Type Department Care Team (Late st Contact Info) Description 06/15/2016 Chart Note [facility] Radiation Oncology at [facility] [address] [place] [address] Venkatesh Marx MD [address] [facility] 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 [place] [address] PCP - General Family Medicine 03/20/16 Venkatesh Marx MD Consulting Physician Radiation Oncology 04/10/16 Dexter Tillman MD Referring Physician [facility] Medical Oncology 04/10/16 documented as of this encounter
== END 2025-03-11 23:59 | disposition home or self-care (01) ==
LOC: LAB.DROPOF 03-14 11:43
PROVIDERS: PCP Nurse Practitioner; Visit Provider Nurse Practitioner
DX: E55.9 Vitamin D deficiency, unspecified (principal); I10 Essential (primary) hypertension; E78.5 Hyperlipidemia, unspecified; E03.9 Hypothyroidism, unspecified; K21.9 Gastro-esophageal reflux disease without esophagitis; Z12.5 Encounter for screening for malignant neoplasm of prostate
CPT/HCPCS: 80053; 80061; 82306; 82607; 84439; 84443; G0103

== ENCOUNTER 2025-04-04 08:35 | Outpatient (CLI) | payer OTHER, SELFPAY ==
--- OUTSIDE RECORDS SUMMARY | 2025-04-04 08:43 | XMS_ITS | Encounter Summary ---
Author Organization [facility] Address [address] [place] [address] Care Team Providers Care Patient Navigator Name Role Phone Venkatesh Marx MD Unavailable [phone] Dexter Tillman MD Unavailable Unavailable Yadiel Acuna MD Primary Care Provider [phone] Source Comments This information has been disclosed [...] release of HIV test results or diagnoses. [id number] Health Encounter Details Date Type Department Care Team (Late st Contact Info) Description 06/15/2016 Chart Note [facility] Radiation Oncology at [facility] [address] [place] [address] Venkatesh Marx MD [address] [facility] 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 [place] [address] PCP - General Family Medicine 03/20/16 Venkatesh Marx MD Consulting Physician Radiation Oncology 04/10/16 Dexter Tillman MD Referring Physician [facility] Medical Oncology 04/10/16 documented as of this encounter
--- OUTSIDE RECORDS SUMMARY | 2025-04-04 08:43 | XMS_ITS | Encounter Summary ---
Author Organization [facility] Address [address] [place] [address] Care Team Providers Care Lens Polisher Hand Name Role Phone Venkatesh Marx MD Unavailable [phone] Dexter Tillman MD Unavailable Unavailable Yadiel Acuna MD Primary Care Provider [phone] Source Comments This information has been disclosed [...] release of HIV test results or diagnoses. [id number] Health Encounter Details Date Type Department Care Team (Late st Contact Info) Description 06/17/2016 Orders Only [facility] Radiation Therapy at [facility] [address] [place] [phone] Venkatesh Marx MD [address] [facility] 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 [place] [address] PCP - General Family Medicine 03/20/16 Venkatesh Marx MD Consulting Physician Radiation Oncology 04/10/16 Dexter Tillman MD Referring Physician [facility] Medical Oncology 04/10/16 documented as of this encounter
--- OUTSIDE RECORDS SUMMARY | 2025-04-04 08:43 | XMS_ITS ---
Author Organization [facility] Address [address] [place] [address] Care Team Providers Care Sales And Marketing Specialist Name Role Phone Venkatesh Marx MD Unavailable [phone] Dexter Tillman MD Unavailable Unavailable Yadiel Acuna MD Primary Care Provider [phone] Active Problems Patient Care Coordination No te [...] CT scan and FNA on 02/28/2016 at [facility]. AFter biopsy on 02/28/2016 he was [...] 02/12/2016 US soft tissue neck done at [facility] Impression: There is a 2.6 x 1.7 x 2 cm oval area of heterogeneous decreased echogenicity in the right neck likely related to the enlarged lymph node. This is at the angle of the mandible. Submandibular glands have an unremarkable appearance.there are other smaller nodes present in both right and left neck aspect of the neck 02/19/2016 CT scan done at [facility] Impression: 1. Enlarged right neck node/ass [...]
--- OUTSIDE RECORDS SUMMARY | 2025-04-04 08:43 | XMS_ITS | Clinical Summary ---
Author Organization [facility] Address [address] [place] [address] Care Team Providers Care Environmental Health Officer Name Role Phone Venkatesh Marx MD Unavailable [phone] Dexter Tillman MD Unavailable Unavailable Yadiel Acuna MD Primary Care Provider [phone] Source Comments This information has been disclosed [...] therelease of HIV test results or diagnoses. [id number] Allergies No known active allergies Medications [...] glycol (MIRALAX) 17 gram/dose powderIndication s:Tonsil cancer ([facility]),Consti pation, unspecified constipation type Take 17 g by mouth 2 times a day. 255 g 2 6 Active saliva substitute combo no.9 (BIOTENE PBF) MwshIndications: Dry mouth 10 mLs by Mucous Membrane route 4 times a day. 473 mL 2 6 Active nystatin-diphenh ydrAMINE-lidocai ne HCl-rivera syrup in sterile water irrigationIndica tions:Thrush,Ton arslan cancer ([facility]) Take 5 mL by [...] 2 times a day. Active FLUCELVAX QUAD [id number], PF, Syrg 7 Active pilocarpine (SALAGEN) 5 [...] 4 mg/2 mL injection 8 mgIndications:Tonsil cancer ([facility]) 8 mg IV Once 06/14/2016 Active sodium chloride 0.9 % infusion 2,000 mLIndications:Tonsil cancer ([facility]) 2000 mL IV Once 06/17/2016 Active ondansetron (ZOFRAN) 4 mg/2 mL injection 8 mgIndications:Tonsil cancer ([facility]) 8 mg IV Once 06/17/2016 Active morphine [...] CT scan and FNA on 02/28/2016 at [facility]. AFter biopsy on 02/28/2016 he was [...] 02/12/2016 US soft tissue neck done at [facility] Impression: There is a 2.6 x 1.7 x 2 cm oval area of heterogeneous decreased echogenicity in the right neck likely related to the enlarged lymph node. This is at the angle of the mandible. Submandibular glands have an unremarkable appearance.there are other smaller nodes present in both right and left neck aspect of the neck 02/19/2016 CT scan done at [facility] Impression: 1. 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 [place] [address] PCP - General Family Medicine 03/20/16 Venkatesh Marx MD Consulting Physician Radiation Oncology 04/10/16 Dexter Tillman MD Referring Physician [facility] Medical Oncology 04/10/16
--- OUTSIDE RECORDS SUMMARY | 2025-04-04 08:43 | XMS_ITS | Encounter Summary ---
Author Organization [facility] Address [address] [place] [address] Care Team Providers Care Glass Novelty Maker Name Role Phone Venkatesh Marx MD Unavailable [phone] Dexter Tillman MD Unavailable Unavailable Yadiel Acuna MD Primary Care Provider [phone] Source Comments This information has been disclosed [...] release of HIV test results or diagnoses. [id number] Health Encounter Details Date Type Department Care Team (Late st Contact Info) Description 06/14/2016 Orders Only [facility] Radiation Therapy at [facility] [address] [place] [phone] Venkatesh Marx MD [address] [facility] 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 [place] [address] PCP - General Family Medicine 03/20/16 Venkatesh Marx MD Consulting Physician Radiation Oncology 04/10/16 Dexter Tillman MD Referring Physician [facility] Medical Oncology 04/10/16 documented as of this encounter
--- OUTSIDE RECORDS SUMMARY | 2025-04-04 08:43 | XMS_ITS | Clinical Summary ---
Author Organization [facility] Address [address] [place] [address] Phone Care Team Providers Care Poultry Hanger Name Role Phone Unavailable Primary Care Provider [...] TUNNEL RELEASE; Surgeon: Toby Hall MD; Location: [facility]; Service: Orthopedics Medical History Medical History Date [...] Non-Reacti ve 11/05/2024 1:30 PM EST PREFERRED [employer] Comment: Antibodies to HCV detected. HCV RNA QUANT will be performed. Blood VENOUS BLOOD / Unknown Venipuncture / Unknown 11/05/2024 12:25 PM EST 11/05/2024 12:25 PM EST Narrative [facility]REFERRED [employer] - 11/05/2024 1:30 PM EST Test performed using Lety Elecsys electrochemiluminescence immunassay (ECLIA). Kathryn Landon APRN HEMATOLOGY ORDERABLES Carissa jaeger Result [employer] [address] [facility] , [address] [place] [id number] from Last 3 Months or Most Recently Relevant [place] [id number] [facility] [address] [place] [id number] [place] [id number]
--- NOTE | 2025-04-04 09:00 | FL_ITS ---
FINAL REPORT CLINICAL HISTORY: difficulty swallowing 1.23 fluoro time 1050.73 dap FINDINGS: BARIUM SWALLOW HISTORY: Dysphagia. TECHNIQUE: The patient ingested barium contrast. Spot and overhead films were performed. A total of 39 images were saved. FINDINGS: Nasopharyngeal reflux is noted. There is no gastroesophageal reflux demonstrated. Motility appears normal. There is a small sliding-type hiatal hernia. A small diverticulum is identified in the distal esophagus. 13 mm barium tablet passes easily through the esoophagus and into the stomach. A single episode of aspiration of contrast was noted during the examination. Contrast was seen in right lobe bronchi. FLUOROSCOPY TIME: 1 minute 23 seconds Radiation exposure in Total DAP: 1050.73 uGym2 IMPRESSION: Nasopharyngeal reflux. Small diverticulum in the distal esophagus. Small sliding-type hiatal hernia. Single episode of aspiration of contrast noted. Reviewed, Interpreted and Dictated by Osvaldo Faith MD Transcribed by Odilia Sanderson PA-C Authenticated and . [facility]
[2025-04-04] MEDS: E-Z-GASII EFFERVESCENT GRANULES;1PK 1 EACH PO (09:10)
[2025-04-04] MEDS: BARIUM SULFATE(E-Z-AC);750ML BOTTLE 750 ML PO (09:10)
[2025-04-04] MEDS: BARIUM SULFATE (E-Z-HD 340GM);135ML BOTTLE 135 ML PO (09:10)
== END 2025-04-04 23:59 | disposition home or self-care (01) ==
LOC: RAD 08:38
PROVIDERS: PCP Nurse Practitioner; Visit Provider Student in an Organized Health Care Education/Training Program
DX: K21.9 Gastro-esophageal reflux disease without esophagitis (principal); K22.5 Diverticulum of esophagus, acquired; K44.9 Diaphragmatic hernia without obstruction or gangrene; Z85.819 Personal history of malignant neoplasm of unspecified site of lip, oral cavity, and pharynx; Z92.3 Personal history of irradiation
CPT/HCPCS: 74220

== ENCOUNTER 2025-06-21 10:37 | Outpatient (CLI) | payer OTHER, SELFPAY ==
--- NOTE | 2025-06-21 11:00 | FL_ITS ---
FINAL REPORT CLINICAL HISTORY: evaluation for speech therapy 22.57 mGy 292.65 DAP 5:38 secs fluoro FINDINGS: Modified barium swallow FINDINGS: Fluoroscopy was provided for the speech pathologist to evaluate the swallowing mechanism. The patient was given several different consistencies of barium while the swallow was visualized fluoroscopically. The report of the speech pathologist should be consulted prior to making dietary decisions. IMPRESSION: Modified barium swallow under fluoroscopic guidance. Please see speech pathologist's report for further details and dietary recommendations. Air kerma dose 22.57 mGy Authenticated and ERN
--- NOTE | 2025-06-21 12:56 | HMH.SLMBS2 ---
Speech & Language Evaluation Speech/Lang Modified Barium Swallow Start: 06/21/25 12:40 Freq: once Status: Complete Protocol: Document 06/21/25 12:41 EVELINA (Rec: 06/21/25 12:56 EVELINA [id number]) STOKER INSTALLATION MECHANIC Evaluation Information STOKER INSTALLATION MECHANIC Evaluation Information Date of Evaluation: 06/21/25 Time of Evaluation: 11:00 Evaluation Type Initial Certification Reason for Referral dysphagia per MD order Does Patient Qualify Yes for Service Qualify/Failure Based on clinical observations made throughout MBSS, pt Comment would benefit from skilled speech therapy services to address prophylactic dyphagia exercises for a 3 month period prior to completing repeat MBSS. MBS Recommendations Recommendation PHYSICIAN CERTIFICATION: The specified therapy services are required, authorized, and reviewed every 30 days. Patient will be Seen 1 # Times/Week For # of Weeks 12 Plan Anticipate reaching 8 STG in # weeks Anticipate reaching 12 LTG in # weeks Pt/Guardian verbally Yes ack understanding of dx/prognosis/ goals Diet Dietary Mechanical Soft,Ground Meats,Thin Liquids Recommendations SL Swallow Alt bite w/sip thru meal,High aspiration risk,Eat at Guidelines slow rate,Reflux precautions Swallowing Crush Crush lge pills w/applesa Meds Treatment/Strategies Strategy/Precaution Sitting Upright (90 deg),Chin Tuck,Double Swallow, Recommended Supraglottic Swallow,No Straw,Small Bites and Sips, Alternate Liquids/Solids STOKER INSTALLATION MECHANIC Patient History Section STOKER INSTALLATION MECHANIC Patient History Primary Medical 70 year old male who presents in Radiology at this History date for a modified barium swallow done following referral from barium swallow completed 04-04-25 in which aspiration was noted. Pt states symptom girard he is still the same, he still can't swallow very well at times. 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 Pt states since his treatment in 2016 he difficulty swallowing, and has gradually gotten worse. Pt was seen in the ER on 01/28/[address] doctor genesis had to removed a piece of chicken. Does Patient have No Reflux or GERD? Does Patient Yes Experience Coughing or Choking Episodes? Does Patient Avoid Yes Certain Food Textures/ Consistencies? Food Textures/ breads, some meats Consistencies Comment Does Patient Utilize No Compensatory Strategies During Meals? Has Patient No Experienced Significant Weight Loss? Does Pt have Hx of No Recurrent Pneumonias or Respiratory Infections? Has Patient Noticed No Change in Vocal Quality? STOKER INSTALLATION MECHANIC Interview/Questionnaires Patient Interview and Questionnaires Were Any of the MD Joseph Dysphagia Inventory (MDADI) Questionnaires Presented? Questionnaires MDADI results report correlation of swallowing Comment difficulty impacting life Mod Barium Swallow Study Patient Orientation Patient Orientation Person,Place,Time,Situation Oral Expression No Impairment Ability Ability to Follow Excellent Directions Is Patient able to Yes Perform Volitional Throat Clear? Is Patient able to Yes Perform Volitional Cough? Is Patient able to Yes Manage Secretions Independently? Mod Barium Swallow Set Up Radiologist Demetrius Uribe Patient Presentation Awake,Alert,Appropriate,Follows Commands : Bolus Consistencies Thin Liquids,Kieler Thick Liquids,Pudding,Puree, Trialed: Mechanical Soft,Regular,Pill (Barium Tablet) MBSS Observations Consistency & Strategy Trial Regular Penetration/ 6 Aspiration Scale PAS Amount Gross Pharyngeal Residual 10-49% Regular Half Bolus Penetration/ 5 Aspiration Scale PAS Amount Gross Pharyngeal Residual 10-49% Mechanical Soft Penetration/ 5 Aspiration Scale PAS Amount Gross Pharyngeal Residual 10-49% Mechanical Soft Half Bolus Penetration/ 4 Aspiration Scale PAS Amount Trace Pharyngeal Residual 10-49% Puree Full Spoon Penetration/ 3 Aspiration Scale PAS Amount Trace Pharyngeal Residual 10-49% Puree Half Spoon Penetration/ 2 Aspiration Scale PAS Amount Trace Pharyngeal Residual 0-9% Pudding Full Spoon Penetration/ 4 Aspiration Scale PAS Amount Gross Pharyngeal Residual 10-49% Pudding Half Spoon Penetration/ 3 Aspiration Scale PAS Amount Trace Pharyngeal Residual 10-49% Kieler Open Cup Sip Penetration/ 5 Aspiration Scale PAS Amount Gross Pharyngeal Residual 10-49% Thin Straw Sip Penetration/ 4 Aspiration Scale PAS Amount Trace Pharyngeal Residual 10-49% Thin Subsequent Sips from Cup Penetration/ 3 Aspiration Scale PAS Amount Trace Pharyngeal Residual 10-49% Thin Open Cup Sip Penetration/ 2 Aspiration Scale PAS Amount Trace Pharyngeal Residual 0-9% Mod Barium Swallow Impressions Oral Phase Summary & Impressions Oral Phase: Mild Impairment Impression Oral Phase: Labial No Impairment (WFL) Closure Oral Phase: Bolus No Impairment (WFL) Formation Pooling L/ R Oral Phase: Bolus No Impairment (WFL) Formation Under Tongue Oral Phase: Bolus Minimal Impairment Formation Scattered Loss Oral Phase: Minimal Impairment Mastication Rotary Chew Oral Phase: Minimal Impairment Mastication Munching Oral Phase: Mild Impairment Mastication Lateralization Oral Phase: Lingual Mild Impairment Movement Oral Phase: Residue Mild Impairment Clearing Pharyngeal Phase Summary & Impressions Pharyngeal Phase: Severe Impairment Impression Pharyngeal Phase: A/ Severe Impairment P Lingual Propulsion Spills Pharyngeal Phase: Moderate Impairment Swallow Response Delay Pharyngeal Phase: Moderate Impairment Base of Tongue Pharyngeal Phase: Moderate Impairment Epiglottic Coverage Pharyngeal Phase: Moderate Impairment Laryngeal Elevation Pharyngeal Phase: Severe Impairment Vallecular Retention Clearing Pharyngeal Phase: Severe Impairment Pharyngeal Wall Residue Clearing Pharyngeal Phase: Moderate Impairment Piriform Sinus Retention Pharyngeal Phase: Severe impairment of pharyngeal phase of swallow 2' Summary reduced hyolaryngeal excursion resulting in inadequate epiglottic coverage; AP spills across all consistencies with delayed swallow. Ottoniel residual observed throughout laryngeal vestibule with primary area of concern being vallecular space. Pt required multiple swallows throughout all trials with throat clear/cough followed with additional swallow. Chin tuck forward assisted in clearing of liquids and puree, however chin tuck backward assisted with solids and pudding. STOKER INSTALLATION MECHANIC discussed safest recommendation being mechanical soft however patient expressed he would prefer to eat what he wants and STOKER INSTALLATION MECHANIC discussed risks of aspiration/ aspiration precautions with pt who expressed understanding. He was open to pursuing speech therapy services. Aspiration Aspiration? Yes Degree of Aspiration Small : When Aspirated: During the swallow Silent Aspiration? No STOKER INSTALLATION MECHANIC MBSS Goals MBS Alf Goals Patient will utilize Double Swallow,Chin Tuck,No Straws,Alternate Bites & compensatory Sips,Sitting Upright,Small Bites & Sips,Puree/Pudding/ strategies with PO Liquid Wash,Effortful Swallow intake in order to meet nutrition and hydration needs for daily meals without overt signs/symptoms of aspiration. The patient will Mechanical Soft,Ground Meats tolerate the least restrictive diet with a safe/ efficient swallow to maintain adequate nutrition and hydration. The patient will Yes demonstrate improved swallowing function via repeat clinical evaluation, videoendoscopy/ videofluoroscopy and /or patient self- rating scores. ?The patient and/or Yes family will participate in further education for swallowing goals . The patient will Supraglottic Swallow,Yuridia Maneuver,Falsetto E,HAWK, complete a home CTAR (Isometric),CTAR (Isokinetic) education program of dysphagia exercises and/or complete structured swallowing therapy to improve swallow function through utilization of recommended therapy approaches [facility] Short Term Goals The patient will Supraglottic Swallow,Yuridia Maneuver,Falsetto E,HAWK, demonstrate __% CTAR (Isometric),CTAR (Isokinetic) accuracy and require ____ cuing in structured swallowing therapy with the STOKER INSTALLATION MECHANIC using the following exercises/therapy approaches and therapy assisted devices. Accuracy Percentage 75 Demonstration Cueing Requirement Moderate Pt. will tolerate Yes least restrictive diet w/o any overt s /s of aspiration & penetration independently w/ use of required compensatory strategies in order to meet nutrition & hydration needs for daily meals. Dietary Mechanical Soft,Ground Meats,Thin Liquids Recommendations: MBS Short Term Goals Compensatory Double Swallow,Chin Tuck,No Straws,Sitting Upright, Strategies: MBS Small Bites & Sips,Puree/Pudding/Liquid Wash,Effortful Short Term Goals Swallow Education Instructions Discussed results of MBSS, safest diet recs, referred provided to skilled speech therapy services, and educated on aspiration risks/precautions; pt expressed understanding. Patient/Caregiver Able to recall/restate Able to Recall Information Reinforcement needed No PHYSICIAN CERTIFICATION: I certify the specified therapy services for Matteo Dickerson are required, authorized, and reviewed every 30 days.
== END 2025-06-21 23:59 | disposition home or self-care (01) ==
PROVIDERS: PCP Nurse Practitioner; Visit Provider Student in an Organized Health Care Education/Training Program
DX: R13.10 Dysphagia, unspecified (principal)
CPT/HCPCS: 74230; 92611